=== PATIENT | male | born 1935 | race Caucasian/White ===

== ENCOUNTER 2017-12-31 18:26 | Emergency (ER) | payer MEDICARE, BC ==
[~2017-12-31] VITALS: Ht 170.2 cm; Wt 63.5 kg
[~2017-12-31 18:26] MED LIST: ACETAMINOPHEN325 M1 ORAL; AMBIEN5 MG ORAL; APRESOLINE50 MG ORAL; ASPIRIN81 M3 PO; ATENOLOL100 MG; ATENOLOL100 MG ORAL; ATENOLOL50 MG ORAL; ATIVAN1 MG ORAL; ATIVAN2 MG ORAL; BENICAR HCT 401 EACH ORAL; CARAFATE1 GM/10 M1; CLONIDINE HCL0.1 M1 PO; CLONIDINE0.1 MG ORAL; COLACE100 MG ORAL; ENALAPRIL MALEA10 MG ORAL; ENALAPRIL MALEA20 MG PO; KEFLEX500 MG ORAL; LASIX20 M1 ORAL; LISINOPRIL20 MG ORAL; LORAZEPAM2 MG ORAL; METHADONE HCL10 MG ORAL; METHADONE HCL10 MG PO; NITROSTAT0.4 M2; OXYCODONE-ACET1 EAC5; POTASSIUM CHLO20 ME3 PO; QUETIAPINE FUM200 MG; QUETIAPINE FUMA50 MG ORAL; RANITIDINE HCL150 MG ORAL; SEROQUEL200 MG ORAL; TENORMIN100 MG ORAL; ZANTAC150 MG ORAL
[2017-12-31 19:30] VITALS: BP 125/76
[2017-12-31] MEDS ORDERED: oxyCODONE HCL/Acetaminophen 5/325mg ORAL ONE (20:00)
[2017-12-31] MEDS ORDERED: Ketorolac 30mg Inj IV ONE (20:00)
[2017-12-31 20:32] LABS: BASOPHILS % (AUTO) 0.9 % (0.0-2.0); EOSINOPHILS % (AUTO) 0.9 % (0.0-3.0); HEMATOCRIT 31.5 % (42.0-52.0); HEMOGLOBIN 10.3 G/DL (14.2-18.0); LYMPHOCYTES % (AUTO) 17.3 % (20.0-45.0); MEAN CORPUSCULAR VOLUME 88 FL (80-99); MONOCYTES % (AUTO) 12.8 % (1.0-10.0); NEUTROPHILS % (AUTO) 68.1 % (45.0-75.0); PLATELET COUNT 167 K/UL (150-450); RED BLOOD COUNT 3.57 M/UL (4.70-6.10); RED CELL DISTRIBUTION WIDTH 13.7 % (11.6-14.8); WHITE BLOOD COUNT 6.5 K/UL (4.8-10.8)
[2017-12-31 20:39] LABS: INR 1.1 (0.9-1.1)
[2017-12-31 20:42] LABS: ANION GAP 7 mmol/L (5-15); BLOOD UREA NITROGEN 8 mg/dL (7-18); CALCIUM 8.5 MG/DL (8.5-10.1); CARBON DIOXIDE 30 MMOL/L (21-32); CHLORIDE 85 MMOL/L (98-107); CREATININE 1.2 MG/DL (0.55-1.30); POTASSIUM 3.1 MMOL/L (3.5-5.1); SODIUM 122 MMOL/L (136-145)
[2017-12-31 20:49] LABS: ALANINE AMINOTRANSFERASE 20 U/L (12-78); ALBUMIN 3.3 G/DL (3.4-5.0); ALBUMIN/GLOBULIN RATIO 0.9 (1.0-2.7); ALKALINE PHOSPHATASE 123 U/L (46-116); ASPARTATE AMINO TRANSFERASE 20 U/L (15-37); BILIRUBIN,TOTAL 0.5 MG/DL (0.2-1.0)
--- NOTE | 2017-12-31 21:31 | Emergency Room Report ---
History of Present Illness General Chief Complaint: Lower Back Pain or Injury Source: Patient Present Illness HPI Patient had a ground-level fall onto his left side 2 days ago. He's had persistent pain in his left chest and left flank area. Denies any cough, hematuria, hemoptysis. He states the pain is severe, L side of chest and flank. Rates pain at 8/10, somewhat pleuritic, more positional. The patient is on 95 mg methadone and taking 15 mg Percocets at home. Ambulatory, no incontinence, no cough, chest pain, neck or extremity pain. H/O Bipolar disorder - denies SI or HI. Allergies: Coded Allergies: IODINE (Verified Allergy, Unknown, 05/29/09) Uncoded Allergies: IV dye (Allergy, Unknown, 01/08/15) Patient History Past Medical History: see triage record Past Surgical History: PTCA, appy, other - bunion Social History: Reports: smoking - former Social History Narrative at home Reviewed Nursing Documentation: PMH: Agreed, PSxH: Agreed Nursing Documentation-PMH Past Medical History: No History, Except For Hx Cardiac Problems: Yes Hx Hypertension: Yes Hx Pacemaker: No Hx Asthma: No Hx COPD: No Hx Diabetes: No Hx Cancer: No Hx Gastrointestinal Problems: No Hx Neurological Problems: No Hx Cerebrovascular Accident: No Hx Seizures: No Review of Systems All Other Systems: negative except mentioned in HPI Physical Exam Vital Signs Date Time Temp Pulse Resp B/P (MAP) Pulse Ox O2 Delivery O2 Flow Rate FiO2 12/31/17 18:48 97.9 56 20 125/76 98 Nasal Cannula Sp02 EP Interpretation: reviewed, normal General Appearance: well appearing, no apparent distress, GCS 15 Head: normocephalic Eyes: bilateral eye normal inspection, bilateral eye PERRL ENT: moist mucus membranes Neck: supple Respiratory: lungs clear, normal breath sounds, other - L lower chest posteriorly with TTP, no crepetance Cardiovascular #1: regular rate, rhythm Cardiovascular #2: 2+ radial (R) Gastrointestinal: normal inspection, normal bowel sounds, non tender, no mass, non-distended Genitourinary: CVA tenderness (L) Musculoskeletal: back normal, gait/station normal, normal range of motion Neurologic: alert, oriented x3, motor strength/tone normal, DTRs symmetric, sensory intact, cerebellar normal, normal gait, speech normal Psychiatric: mood/affect normal Skin: normal inspection, warm/dry, other - no abrasions or hematomata Medical Decision Making Diagnostic Impression: Primary Impression: Fall Qualified Codes: W19.XXXA - Unspecified fall, initial encounter Additional Impression: Chest wall contusion Qualified Codes: S20.212A - Contusion of left front wall of thorax, initial encounter ER Course Patient presents post fall 2 days ago with L chest pain. DDx: AMI, contusion, rib fractures, pneumothorax,. flank contusion. Evaluation with Chest abd CT, labs. Treated with anagesics considering will need to get home on own. Labs low sodium, normal CBC. UA not obtained. Improved with treatment. Patient pressuring for opiates. Patient stable for outpatient observation and treatment. Patient left without d/c paperwork and prescriptions (from going to bathroom). Patient stable for outpatient observation and treatment. Laboratory Tests Test 12/31/17 20:08 White Blood Count 6.5 K/UL (4.8-10.8) Red Blood Count 3.57 M/UL (4.70-6.10) L Hemoglobin 10.3 G/DL (14.2-18.0) L Hematocrit 31.5 % (42.0-52.0) L Mean Corpuscular Volume 88 FL (80-99) Mean Corpuscular Hemoglobin 28.9 PG (27.0-31.0) Mean Corpuscular Hemoglobin Concent 32.7 G/DL (32.0-36.0) Red Cell Distribution Width 13.7 % (11.6-14.8) Platelet Count 167 K/UL (150-450) Mean Platelet Volume 8.1 FL (6.5-10.1) Neutrophils (%) (Auto) 68.1 % (45.0-75.0) Lymphocytes (%) (Auto) 17.3 % (20.0-45.0) L Monocytes (%) (Auto) 12.8 % (1.0-10.0) H Eosinophils (%) (Auto) 0.9 % (0.0-3.0) Basophils (%) (Auto) 0.9 % (0.0-2.0) Prothrombin Time 11.1 SEC (9.30-11.50) Prothrombin Time INR 1.1 (0.9-1.1) PTT 32 SEC (23-33) Sodium Level 122 MMOL/L (136-145) L Potassium Level 3.1 MMOL/L (3.5-5.1) L Chloride Level 85 MMOL/L (98-107) L Carbon Dioxide Level 30 MMOL/L (21-32) Anion Gap 7 mmol/L (5-15) Blood Urea Nitrogen 8 mg/dL (7-18) Creatinine 1.2 MG/DL (0.55-1.30) Estimate Glomerular Filtration Rate mL/min (>60) Glucose Level 83 MG/DL (74-106) Calcium Level 8.5 MG/DL (8.5-10.1) Total Bilirubin 0.5 MG/DL (0.2-1.0) Aspartate Amino Transferase (AST) 20 U/L (15-37) Alanine Aminotransferase (ALT) 20 U/L (12-78) Alkaline Phosphatase 123 U/L (46-116) H Troponin I 0.006 ng/mL (0.000-0.056) Total Protein 6.9 G/DL (6.4-8.2) Albumin 3.3 G/DL (3.4-5.0) L Globulin 3.6 g/dL Albumin/Globulin Ratio 0.9 (1.0-2.7) L EKG Diagnostic Results Rate: bradycardiac Rhythm: other - a fib Rhythm Strip Diag. Results EP Interpretation: yes Rhythm: no PVC's, no ectopy, other - a fib CT/MRI/US Diagnostic Results CT/MRI/US Diagnostic Results : Imaging Test Ordered: chest abd Impression Compression T5, T6 - uncertain age Old fx R shoulder, chest wall and spine Small pleural effusions Pacer, inc cor Hiatal hernia Old fx pubic ramus Last Vital Signs Date Time Temp Pulse Resp B/P (MAP) Pulse Ox O2 Delivery O2 Flow Rate FiO2 12/31/17 22:09 125/67 12/31/17 20:48 97.9 12/31/17 19:30 20 98 Nasal Cannula 12/31/17 18:48 56 Status: improved Disposition: HOME, SELF-CARE Condition: Improved Scripts Ibuprofen* (MOTRIN*) 600 Mg Tablet 600 MG ORAL Q6H Y for For Pain, #20 TAB Prov: Antonio Izaguirre M.D. 12/31/17 Referrals: VADIM CERVANTES (PCP) Antonio Izaguirre M.D. Dec 31, 2017 21:31
[2017-12-31] MEDS ORDERED: IBUPROFEN600 MG ORAL (21:33)
[2017-12-31 22:09] VITALS: BP 125/67
--- NOTE | 2018-01-01 13:16 | Diagnostic Imaging Report ---
Indication: Pain status post trauma Technique: CT of the chest, abdomen and pelvis utilizing automated exposure control without intravenous or oral contrast. CT dose: Total DLP 871 mGycm; CTDI vol 13.3 mGy Comparison: CT abdomen 10/09/2010 Findings: There compression deformities of uncertain age involving the T5, T6 and T7 vertebral bodies. There is S-shaped scoliosis and multilevel degenerative change of the thoracolumbar spine. There is transitional lumbosacral anatomy with 6 nonrib-bearing lumbar-type vertebral bodies. Likely chronic compression fractures involving the L2 and L4 vertebral bodies. There is partial fusion between L1 and L2. There is grade 1 anterolisthesis of L5 on L6, which is likely degenerative in etiology. There are remote fracture deformities of the right clavicle and shoulder. Remote fracture deformity of the right inferior pubic ramus. There are trace bilateral pleural effusions, left greater than right. There are bibasilar atelectatic changes scattered calcified granulomas. There is linear atelectasis/scarring in the lingula. There multiple bilateral pulmonary nodules, all measuring less than 6 mm. For example there is a 3 mm nodule in the left lower lobe (series 5 image #60. 3 mm nodule is noted in the middle lobe (series 5 image #74) and 2 mm nodule in the right lower lobe (series 5 image #76). Heart is borderline enlarged. There are extensive coronary arterial calcifications. Left-sided pacemaker in place. Moderate-sized hiatal hernia. Noncontrast evaluation of the liver, gallbladder, spleen, adrenal glands and pancreas is grossly unremarkable. Multiple low-attenuation lesions in the bilateral kidneys possibly cysts. No evidence of obstructive uropathy. Copious stool noted in the colon. No evidence to suggest bowel obstruction. Appendix not definitively identified. No focal inflammatory stranding in the right lower quadrant to suggest appendicitis. No ascites or free intraperitoneal air. Abdominal aorta is severely calcified but normal in caliber. IMPRESSION: Age-indeterminate compression fractures of T5, T6 and T7. Rib fracture deformities of the right shoulder, right clavicle and right inferior pubic ramus. Chronic appearing lumbar compression fractures. Scoliosis and multilevel degenerative change of the thoracolumbar spine. Evidence of transitional lumbosacral anatomy. No definite evidence of solid organ injury however evaluation limited without IV contrast. No evidence to suggest hemoperitoneum. No free intraperitoneal air. Copious stool noted within the colon. Question constipation. Moderate-sized hiatal hernia. Small bilateral pleural effusions and bibasilar atelectasis/consolidation. Cardiomegaly. Pacemaker in place. Multiple bilateral pulmonary nodules less than 6 mm. Per Fleischner Society criteria recommendations, no routine follow-up recommended if patient is considered low risk. Optional CT scan in 12 months can be considered if patient is considered high risk. Additional findings as above. The CT scanner at [facility] is accredited by the [employer] and the scans are performed using protocols designed to limit radiation exposure to as low as reasonably achievable to attain images of sufficient resolution adequate for diagnostic evaluation.
--- NOTE | 2018-01-04 17:09 | Cardiology Report ---
APPROVED REPORT EKG Measurement Heart [id number] Atrial pacing with premature atrial complexes Prolonged QT Abnormal ECG
== END 2017-12-31 22:11 | disposition home or self-care (01) ==
LOC: EMR 20:15
DX: S20.212A Contusion of left front wall of thorax, initial encounter (principal); W19.XXXA Unspecified fall, initial encounter; Y92.9 Unspecified place or not applicable; Z91.041 Radiographic dye allergy status; I10 Essential (primary) hypertension; Z87.891 Personal history of nicotine dependence; M48.54XA Collapsed vertebra, not elsewhere classified, thoracic region, initial encounter for fracture; K44.9 Diaphragmatic hernia without obstruction or gangrene; M41.85 Other forms of scoliosis, thoracolumbar region; Z95.0 Presence of cardiac pacemaker; I51.7 Cardiomegaly
CPT/HCPCS: 36415; 71250; 74150; 80053; 84484; 85025; 85610; 85730; 93005; 99284; J1885

== ENCOUNTER 2019-04-04 12:03 | Inpatient (IN) | payer MEDICARE, BC ==
[~2019-04-04] VITALS: Ht 170.2 cm; Wt 62.6 kg
[~2019-04-04 12:03] MED LIST changes: +IBUPROFEN600 MG ORAL
[2019-04-04] MEDS ORDERED: Morphine Sulfate 4mg/ml Inj (IV USE ONLY) IVP ONE ×2 (12:15→13:00)
--- NOTE | 2019-04-04 13:00 | NUR ---
ED Nurse Note:pt. was biba from the [facility] with lower back pain, VSS, given 2 doses of morphine and blood sent to labs
[2019-04-04 13:04] LABS: BASOPHILS % (AUTO) 1.8 % (0.0-2.0); EOSINOPHILS % (AUTO) 2.5 % (0.0-3.0); HEMOGLOBIN 11.9 G/DL (14.2-18.0); LYMPHOCYTES % (AUTO) 23.7 % (20.0-45.0); MEAN CORPUSCULAR VOLUME 94 FL (80-99); MONOCYTES % (AUTO) 10.9 % (1.0-10.0); NEUTROPHILS % (AUTO) 61.1 % (45.0-75.0); PLATELET COUNT 163 K/UL (150-450); RED BLOOD COUNT 3.83 M/UL (4.70-6.10); RED CELL DISTRIBUTION WIDTH 13.1 % (11.6-14.8); WHITE BLOOD COUNT 6.9 K/UL (4.8-10.8)
[2019-04-04 13:05] LABS: ANION GAP 10 mmol/L (5-15); BLOOD UREA NITROGEN 15 mg/dL (7-18); CALCIUM 8.5 MG/DL (8.5-10.1); CARBON DIOXIDE 23 MMOL/L (21-32); CHLORIDE 113 MMOL/L (98-107); CREATININE 1.4 MG/DL (0.55-1.30); POTASSIUM 3.8 MMOL/L (3.5-5.1); SODIUM 146 MMOL/L (136-145)
[2019-04-04 13:09] LABS: ALANINE AMINOTRANSFERASE 22 U/L (12-78); ALBUMIN 3.3 G/DL (3.4-5.0); ALBUMIN/GLOBULIN RATIO 0.9 (1.0-2.7); ALKALINE PHOSPHATASE 97 U/L (46-116); ASPARTATE AMINO TRANSFERASE 20 U/L (15-37); BILIRUBIN,TOTAL 0.2 MG/DL (0.2-1.0)
[2019-04-04] MEDS ORDERED: Ketorolac 30mg Inj IV ONE (13:15)
[2019-04-04 13:29] VITALS: BP 114/76
[2019-04-04] MEDS ORDERED: LORazepam Inj 2mg/ml 1ml ONE (13:41)
[2019-04-04] MEDS ORDERED: LORazepam Inj 2mg/ml 1ml IV ONE (13:45)
[2019-04-04] MEDS ORDERED: MULTIVITAMINS1 EAC8 ORAL (14:07)
[2019-04-04] MEDS ORDERED: FLOMAX0.4 MG ORAL ×2 (14:07→18:58)
[2019-04-04] MEDS ORDERED: NORCO 5-325 TA1 EACH ORAL (14:07)
[2019-04-04] MEDS ORDERED: ASCORBIC ACID500 MG ORAL (14:07)
[2019-04-04] MEDS ORDERED: NUTRISOURCE FI205 GM PO (14:07)
[2019-04-04] MEDS ORDERED: NORCO 10-325 T1 EACH ORAL (14:07)
[2019-04-04] MEDS ORDERED: HUMALOG100 UNIT/4 SUBQ (14:07)
[2019-04-04] MEDS ORDERED: LISINOPRIL20 MG ORAL (14:07)
[2019-04-04] MEDS ORDERED: MULTIVITAMINS1 EAC2 ORAL (14:07)
[2019-04-04] MEDS ORDERED: NORVASC5 MG ORAL (14:07)
--- NOTE | 2019-04-04 15:07 | Emergency Room Report ---
History of Present Illness General Chief Complaint: Pain Present Illness HPI Patient is an 83-year-old male presented for increased low back pain and left- sided abdominal pain. Patient gradual onset of symptoms. He prior history of prostate cancer. He was noted to be narcotic dependent. Patient had not been vomiting or having any fever. He reports having some pain to the left groin area. He denies any hematuria. He has been able to ambulate. Patient denies any vomiting or diarrhea.He reportedly has been having bowel movements. Allergies: Coded Allergies: IODINE (Verified Allergy, Unknown, 05/29/09) Uncoded Allergies: IV dye (Allergy, Unknown, 01/08/15) Patient History Past Medical History: see triage record Reviewed Nursing Documentation: PMH: Agreed; PSxH: Agreed Nursing Documentation-PMH Hx Cardiac Problems: Yes - Pacemaker Hx Hypertension: Yes Hx Pacemaker: No Hx Asthma: No Hx COPD: No Hx Diabetes: No Hx Cancer: Yes - Prostate Hx Gastrointestinal Problems: No History Of Psychiatric Problem: Yes - Bipolar Hx Neurological Problems: No Hx Cerebrovascular Accident: No Hx Seizures: No Review of Systems All Other Systems: negative except mentioned in HPI Physical Exam Vital Signs Date Time Temp Pulse Resp B/P (MAP) Pulse Ox O2 Delivery O2 Flow Rate FiO2 04/04/19 11:55 98.1 70 18 97 Room Air 04/04/19 13:29 114/76 Sp02 EP Interpretation: reviewed, normal General Appearance: normal inspection, well appearing, no apparent distress, alert, Chronically Ill Head: atraumatic ENT: normal ENT inspection, hearing grossly normal, normal voice Neck: normal inspection, full range of motion, supple, no bony tend Respiratory: normal inspection, lungs clear, normal breath sounds, no respiratory distress, no retraction, no wheezing Cardiovascular #1: regular rate, rhythm, no edema Gastrointestinal: normal inspection, normal bowel sounds, non tender, soft, no guarding, no hernia Genitourinary: no CVA tenderness Musculoskeletal: normal inspection, normal range of motion, decreased range of motion Neurologic: normal inspection, alert, responsive, speech normal Psychiatric: normal inspection, judgement/insight normal, mood/affect normal Skin: normal inspection, normal color, no rash Medical Decision Making Diagnostic Impression: Primary Impression: Intractable back pain Additional Impression: Prostate CA ER Course Patient presented for back pain. Differential diagnosis included but was not limited to herniated disc, cauda equina syndrome, abdominal aortic aneurysm, perforated ulcer, spinal epidural abscess, spinal stenosis, lumbar fracture, metastatic lesion. because of complexity of patient's case laboratory testing and imaging studies were ordered. Was noted to have unremarkable laboratory testing. Patient was noted to have CT imaging which showed multiple lytic lesions as well as some chronic compression fractures. Patient was discussed with Dr. Romano for inpatient management due to primary care physician patient be admitted for intractable pain. Labs Test 04/04/19 12:40 White Blood Count 6.9 K/UL (4.8-10.8) Red Blood Count 3.83 M/UL (4.70-6.10) Hemoglobin 11.9 G/DL (14.2-18.0) Hematocrit 36.0 % (42.0-52.0) Mean Corpuscular Volume 94 FL (80-99) Mean Corpuscular Hemoglobin 31.0 PG (27.0-31.0) Mean Corpuscular Hemoglobin Concent 32.9 G/DL (32.0-36.0) Red Cell Distribution Width 13.1 % (11.6-14.8) Platelet Count 163 K/UL (150-450) Mean Platelet Volume 7.3 FL (6.5-10.1) Neutrophils (%) (Auto) 61.1 % (45.0-75.0) Lymphocytes (%) (Auto) 23.7 % (20.0-45.0) Monocytes (%) (Auto) 10.9 % (1.0-10.0) Eosinophils (%) (Auto) 2.5 % (0.0-3.0) Basophils (%) (Auto) 1.8 % (0.0-2.0) Sodium Level 146 MMOL/L (136-145) Potassium Level 3.8 MMOL/L (3.5-5.1) Chloride Level 113 MMOL/L (98-107) Carbon Dioxide Level 23 MMOL/L (21-32) Anion Gap 10 mmol/L (5-15) Blood Urea Nitrogen 15 mg/dL (7-18) Creatinine 1.4 MG/DL (0.55-1.30) Estimat Glomerular Filtration Rate mL/min (>60) Glucose Level 96 MG/DL (74-106) Calcium Level 8.5 MG/DL (8.5-10.1) Total Bilirubin 0.2 MG/DL (0.2-1.0) Aspartate Amino Transf (AST/SGOT) 20 U/L (15-37) Alanine Aminotransferase (ALT/SGPT) 22 U/L (12-78) Alkaline Phosphatase 97 U/L (46-116) Total Protein 6.8 G/DL (6.4-8.2) Albumin 3.3 G/DL (3.4-5.0) Globulin 3.5 g/dL Albumin/Globulin Ratio 0.9 (1.0-2.7) Lipase 232 U/L (73-393) Last Vital Signs Date Time Temp Pulse Resp B/P (MAP) Pulse Ox O2 Delivery O2 Flow Rate FiO2 04/04/19 13:29 70 17 114/76 98 04/04/19 11:55 98.1 Room Air Status: unchanged Disposition: ADMITTED INPATIENT Condition: Serious Referrals: Kellee Ansari MD (PCP) Valentino Khan MD April 04, 2019 15:07
[2019-04-04 15:27] VITALS: BP 119/78
--- NOTE | 2019-04-04 16:08 | NUR ---
ED Nurse Note:called report to [facility]- given to Christin pt. was taken up condition stable
--- NOTE | 2019-04-04 16:26 | NUR ---
NURSE NOTES: paged Dr Ansari for admission orders. awaiting for response. Patient is A/A/Ox4, ambulatory. No acute resp/cardio distress. cooperative. compliant to Q&A. personal belongings reviewed and noted. However, patient refused to place his bills in the safe $258. skin is intact. arrived to the unit via wheelchair. Bed is in the lowest position. siderails are up x3. call light is within reach. Admission profile done. will cont to monitor.
[2019-04-04 16:31] VITALS: BP 130/69
[2019-04-04] MEDS ORDERED: Docusate 100mg cap ORAL SCH (18:00)
[2019-04-04] MEDS ORDERED: DiphenhydrAMINE 50mg/ml Inj IVP PRN (18:00)
[2019-04-04] MEDS ORDERED: QUEtiapine 200mg tab ORAL SCH ×2 (18:00→21:00)
[2019-04-04] MEDS ORDERED: ALPRAZolam 0.5mg tab ORAL PRN (18:00)
[2019-04-04] MEDS ORDERED: HydrALAZINE 50mg tab ORAL SCH (18:00)
[2019-04-04] MEDS ORDERED: Cephalexin 500mg cap ORAL SCH (18:00)
[2019-04-04] MEDS ORDERED: LORazepam 1mg tab ORAL PRN (18:00)
[2019-04-04] MEDS ORDERED: Nitroglycerin Subl 0.4mg tab SL PRN (18:15)
[2019-04-04] MEDS ORDERED: LORAZEPAM1 MG ORAL (18:54)
[2019-04-04] MEDS ORDERED: FERROUS SULFAT325 MG ORAL (18:54)
[2019-04-04] MEDS ORDERED: CRESTOR10 M2 ORAL (18:54)
[2019-04-04] MEDS ORDERED: FAMOTIDINE20 MG ORAL (18:54)
[2019-04-04] MEDS ORDERED: AMLODIPINE BESY10 MG ORAL (18:58)
[2019-04-04] MEDS ORDERED: ISOSORBIDE MONO30 M1 PO (18:58)
[2019-04-04] MEDS ORDERED: FUROSEMIDE20 M1 ORAL (18:58)
[2019-04-04] MEDS ORDERED: DOCUSATE SODIU250 MG ORAL (18:58)
[2019-04-04] MEDS ORDERED: PANTOPRAZOLE SO40 MG ORAL (18:58)
[2019-04-04] MEDS ORDERED: MONTELUKAST SOD10 MG ORAL (19:00)
[2019-04-04] MEDS ORDERED: ACETAMINOPHEN500 M3 ORAL (19:00)
[2019-04-04] MEDS ORDERED: BISACODYL5 MG ORAL (19:00)
[2019-04-04] MEDS ORDERED: Acetaminophen 500mg (ES) tab ORAL PRN (19:15)
--- NOTE | 2019-04-04 19:26 | NUR ---
HAND-OFF: Report given to Odette.
[2019-04-04 19:55] VITALS: BP 143/63
[2019-04-04] MEDS: Tamsulosin 0.4mg cap ORAL SCH (20:29)
[2019-04-04] MEDS: LORazepam 1mg tab ORAL SCH (20:29)
[2019-04-04] MEDS: Bisacodyl EC 5mg tab ORAL SCH (20:30)
[2019-04-04] MEDS: Heparin 5000 units/ml inj SUBQ SCH (20:31)
[2019-04-04] MEDS ORDERED: Zolpidem 5mg tab ORAL PRN (21:00)
--- NOTE | 2019-04-04 22:48 | NUR ---
Nurse's notes: Received patient awake, alert, oriented but pleasantly forgetful; c/o of lower back pain of 5/10 when in bed and 7/10 when ambulating; asking for Percocet and Methadone, however, none ordered; reviewed orders including MAR with patient; Juan is agreeable and understands plan of care; VS taken; WNL, afebrile; able to ambulate to the bathroom with a steady gait; reminded patient to call for assistance when ambulating. will continue to monitor.
[2019-04-04 23:38] VITALS: BP 137/66
[2019-04-05 03:29] VITALS: BP 145/71
--- NOTE | 2019-04-05 06:43 | NUR ---
nurse's notes: No incidents of falls, injuries or trauma reported as of this time. pain managed well with ordered iv dilaudid with good results. noted with a steady gait when ambulating to the bathroom; no bm this shift. vss; afebrile. will continue to monitor.
--- NOTE | 2019-04-05 07:55 | NUR ---
NURSE NOTES: Received report from Odette ANGUIANO. Patient is awake alert and oriented x4, no acute distress noted, sitting up in bed eating breakfast, reporting back pain is decreasing following dilaudid, but patient reporting anxiety, will administer scheduled Ativan as ordered. IV intact and asymptomatic. Fall prevention education provided and patient reports understanding. Side rails upx3, bed low and locked, call light in reach. Patient updated on plan of care. Will continue to monitor.
[2019-04-05 08:00] VITALS: BP 134/63
--- NOTE | 2019-04-05 08:44 | NUR ---
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 HX OF PROSTATE CANCER VS: BP 114/66, P 70, T 98.0, RR 18, SpO2 97 RBC 3.83, H&H 11.9/36.0,Na 146, CR 1.4 IS:MORPHINE SULFATE 4mg IVP TORADOL 15mg IV LORAZEPAM 0.5mg IV SEROQUEL 200mg APRESOLINE 50mg ADMITTED TO MED/SURG DCP: RETURN TO [facility]
[2019-04-05] MEDS: LORazepam 1mg tab ORAL SCH ×2 (08:45→21:01)
[2019-04-05] MEDS: Docusate 250mg cap ORAL SCH ×2 (08:45→18:02)
[2019-04-05] MEDS: Imdur 30mg tab ORAL SCH (08:45)
[2019-04-05] MEDS: Montelukast 10mg tablet ORAL SCH (08:46)
[2019-04-05] MEDS: Bisacodyl EC 5mg tab ORAL SCH ×2 (08:46→21:01)
[2019-04-05] MEDS: Heparin 5000 units/ml inj SUBQ SCH ×2 (08:48→21:04)
[2019-04-05] MEDS ORDERED: Aspirin Baby 81mg ORAL SCH (09:00)
[2019-04-05] MEDS ORDERED: Lisinopril 20mg tab ORAL SCH (09:00)
--- NOTE | 2019-04-05 11:06 | Diagnostic Imaging Report ---
Indication: Back pain. No recent trauma. Technique: Continuous helical transaxial imaging of the lumbar spine was obtained from the lung bases to the pubic symphysis. No IV contrast was administered. Coronal 2-D reformats were also obtained. Study obtained in a Siemens sensation [address] Total Dose length Product (DLP): 371.[address] Dose Index Volume (CTDIvol): 12.75 mGy Comparison: None Findings: The bones are severely osteopenic. There are multiple compression fracture deformities involving the vertebral bodies present at virtually every level. There are erosive changes about the endplates at L1-2 which could be from a discitis/spondylitis. Correlate clinically. There is a moderate to severe degenerative disc disease with vacuum phenomena and narrowing. Interbody fusion at multiple levels including L3-4 T11-12 and T12-L1. Hypertrophic spurs at multiple levels. Multilevel foraminal stenosis appreciated. There is a right convex scoliosis. There is no acute fracture identified. There is no soft tissue swelling identified. The aorta is moderately tortuous and calcified. IMPRESSION: Erosive changes involving the vertebral endplates about the L1-2 disc. Discitis/osteomyelitis not excluded. Correlate clinically. Severe degenerative changes of the lumbar spine as described above. Right convex scoliosis. Multilevel disc disease and facet arthropathy. Multilevel vertebral compression fracture deformities presumably on the basis of osteoporosis as described above. Atherosclerotic vascular disease. [facility] has communicated the preliminary results to the Emergency Department. Their findings are largely concordant with this report. The CT scanner at [facility] is accredited by the [employer] and the scans are performed using dose optimization techniques as appropriate to a performed exam including Automatic Exposure control.
[2019-04-05 12:00] VITALS: BP 153/76
[2019-04-05] MEDS ORDERED: Tubing IV Secondary IV ONE (14:24)
[2019-04-05 16:00] VITALS: BP 143/79
--- NOTE | 2019-04-05 19:46 | NUR ---
HAND-OFF: Report given to Clemente RN. Patient is in stable condition.
[2019-04-05 20:00] VITALS: BP 135/64
--- NOTE | 2019-04-05 20:15 | NUR ---
NURSE NOTES: Pt is in bed, awake and verbal. No acute distress noted. Pt complains of back pain, pain medication will be given as ordered PRN. IV site on left forearm asymptomatic and patent. Pt ambulates. PT was instructed to call for assistance before getting out of bed. Bed low in position,side rails up and call light within reach.
[2019-04-05] MEDS: Tamsulosin 0.4mg cap ORAL SCH (21:01)
[2019-04-06] VITALS: BP 129/98
--- NOTE | 2019-04-06 02:30 | History and Physical Report ---
DATE OF ADMISSION: 04/04/2019 CHIEF COMPLAINT: Severe low back pain. HISTORY OF PRESENT ILLNESS: This is an 83-year-old male, who is well known to me for years from previous and current care. The patient is narcotic-dependent individual. He gets his narcotics from different sources. 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 However, I do not provide the patient with narcotics due to his high risk for narcotic abuse. The patient was referred to the hospital due to severe low back pain. PAST MEDICAL HISTORY: 1. Ischemic heart disease. 2. Hypertensive cardiovascular disease. 3. History of narcotic abuse. 4. Status post pacemaker. 5. Chronic obstructive pulmonary disease. MEDICATIONS: Tylenol p.r.n., amlodipine, Tenormin, Dulcolax, sodium docusate, famotidine, oral iron, Lasix, isosorbide, lorazepam, montelukast, Protonix, Crestor, and tamsulosin. ALLERGIES: Iodine. FAMILY HISTORY: Unremarkable. SOCIAL HISTORY: He lives in a board and care. HABITS: He is a past heavy cigarette smoker and also has history of a narcotic use. REVIEW OF SYSTEMS: HEENT: Hearing and eyesight are normal. ENDOCRINE: No history of diabetes, thyroid, or adrenal problems. RESPIRATORY: He denies shortness of breath, cough, or hemoptysis. CARDIAC: No chest pain or palpitations. GASTROINTESTINAL: No history of hematochezia, melena, hematemesis, diarrhea, or constipation. MUSCULOSKELETAL: Significant for different types of aches including low back pain. PHYSICAL EXAMINATION: GENERAL: This is an elderly male, who is in no acute distress. VITAL SIGNS: Blood pressure 153/76, pulse 72 and regular, respirations 20, and temperature 98. HEENT: The head is normocephalic and atraumatic. Pupils are equal, round, and reactive to light and accommodation consensually. NECK: Supple. Trachea midline. There was no lymphadenopathy or thyromegaly. LUNGS: Clear to auscultation and percussion. HEART: Regular rate and rhythm without rubs, murmurs, or gallops. ABDOMEN: Soft and nontender. Bowel sounds were active. EXTREMITIES: No clubbing, cyanosis, or edema. NEUROLOGICAL: He is alert and oriented x4. Cranial nerves II through XII intact. LABORATORY AND ANCILLARY DATA: A CT scan of the spine shows erosive changes of the vertebral endplates L1 and L2. There is also evidence of diskitis or osteomyelitis, not excluded, severe degenerative changes of the lumbar spine, multilevel vertebral compression fracture deformities presumably on the basis of osteoporosis, and there is evidence of atherosclerotic vascular disease. CBC within normal limits. BMP shows creatinine 1.4, otherwise within normal limits. ASSESSMENT: 1. Extensive degenerative lumbar diskitis. 2. Ischemic heart disease. 3. Hypertensive cardiovascular disease. 4. History of narcotic abuse. 5. Status post pacemaker. 6. Chronic obstructive pulmonary disease. PLAN: 1. Continue home medications. 2. Pain control. Kellee Ansari M.D. DR: MATT JOB#: [id number] CC: BRIANDA
--- NOTE | 2019-04-06 03:00 | NUR ---
NURSE NOTES: Pt is in bed, asleep. no acute distress noted.
[2019-04-06 04:00] VITALS: BP 143/70
--- NOTE | 2019-04-06 07:05 | NUR ---
HAND-OFF: Report given to ANNMARIE Lay.
--- NOTE | 2019-04-06 07:38 | NUR ---
NURSE NOTES: Patient alert x4, on room air, no sign of distress and shortness of breath; no sign of chest pain; IV Left for-arm flushes well; bed at low position, side rails up x2, breaks engaged; call light within reach; will keep monitoring.
[2019-04-06 08:00] VITALS: BP 125/56
[2019-04-06] MEDS: Docusate 250mg cap ORAL SCH ×2 (08:17→17:55)
[2019-04-06] MEDS: Imdur 30mg tab ORAL SCH (08:17)
[2019-04-06] MEDS: Bisacodyl EC 5mg tab ORAL SCH ×2 (08:18→20:38)
[2019-04-06] MEDS: LORazepam 1mg tab ORAL SCH ×2 (08:18→20:38)
[2019-04-06] MEDS: Montelukast 10mg tablet ORAL SCH (08:19)
[2019-04-06] MEDS: Heparin 5000 units/ml inj SUBQ SCH ×2 (08:21→20:43)
--- NOTE | 2019-04-06 08:59 | Consultation ---
DATE OF CONSULTATION: 04/05/2019 NOTE: POOR AUDIO ORTHOPEDIC CONSULTATION CONSULTING PHYSICIAN: Anand Washington M.D. REQUESTING PHYSICIAN: Kellee Ansari M.D. CHIEF COMPLAINT: Low back pain. HISTORY OF PRESENT ILLNESS: The patient is a pleasant 83-year-old gentleman with a history of low back pain. He was admitted for worsening pain. The patient does not report any acute recent injury. He was brought to [facility]. He had a CT scan of the lumbar spine. Orthopedic consultation was obtained for further care and recommendation. PAST MEDICAL HISTORY: Reviewed per intake chart. SURGICAL HISTORY: Reviewed per intake chart. MEDICATIONS: Reviewed per intake chart. PHYSICAL EXAMINATION: GENERAL: The patient is pretty cachectic gentleman. He is resting in the exam room bed. VITAL SIGNS: Afebrile. Stable vital signs. BACK: Low back examination shows deformity. muscles. Sensation is intact to light touch. bowel or bladder incontinence. LABORATORY AND DIAGNOSTIC DATA: CT scan shows severe osteoporosis with multilevel compression fractures with interbody fusion at L3-L4, T11-T12 and T12-L1. ASSESSMENT: 1. 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 2. Multiple vertebral body compression fractures. 3. Severe osteoporosis. DISCUSSION: At this point, in terms of his back, he has failed back syndrome with pain. He is not a good surgical candidate and he has severe osteoporosis and already had multiple compression fractures. At this point, I recommend is consideration to get him off the PT/OT. If he still has issues, then an MRI for either epidural injection or possibly some type of spinal cord stimulator the next treatment options. Anand Washingotn M.D. DR: Madai JOB#: [id number] CC: Kellee Ansari M.D.; Fax#: [phone]
[2019-04-06 12:00] VITALS: BP 125/65
[2019-04-06 16:00] VITALS: BP 120/70
--- NOTE | 2019-04-06 17:15 | General Progress Note ---
Assessment/Plan Assessment/Plan: Severe Lumbar Spondylosis. Ortho noted. Trying to get epidural injection. Subjective Allergies: Coded Allergies: IODINE (Verified Allergy, Unknown, 05/29/09) Uncoded Allergies: IV dye (Allergy, Unknown, 01/08/15) Subjective Still c/o severe LBP. Objective Last 24 Hour Vital Signs Date Time Temp Pulse Resp B/P (MAP) Pulse Ox O2 Delivery O2 Flow Rate FiO2 04/06/19 16:00 99.4 74 18 120/70 (87) 100 04/06/19 15:10 98.3 04/06/19 12:00 98.3 69 18 125/65 (85) 100 04/06/19 09:00 Room Air 04/06/19 08:18 82 125/56 04/06/19 08:17 125/56 04/06/19 08:00 99.3 82 20 125/56 (79) 96 04/06/19 04:00 97.9 68 18 143/70 (94) 98 04/06/19 00:00 98.8 93 18 129/98 (108) 95 04/05/19 21:00 Room Air 04/05/19 20:00 98.6 59 18 135/64 (87) 97 Intake and Output 04/05/19 04/06/19 19:00 07:00 Intake Total 690 ml 720 ml Output Total 500 ml Balance 690 ml 220 ml Intake Oral 690 ml 720 ml Output Urine Total 500 ml # Voids 3 6 # Bowel Movements 2 Height (Feet): 5 Height (Inches): 7.00 Weight (Pounds): 145 Objective CV Rr Lungs CTA Abd SNT BS + E No CCe Kellee Ansari MD April 06, 2019 17:15
--- NOTE | 2019-04-06 19:36 | NUR ---
HAND-OFF: Report given to Rohini/ANNMARIE Altman.
--- NOTE | 2019-04-06 19:40 | NUR ---
NURSE NOTES: RECEIVED PT FROM ANNMARIE BRYANT. PT IS AMBULATING THE HALLWAY, AAO X4, ON ROOM AIR W/ UNLABORED BREATHING. PT DENIES PAIN BOGDAN, NO ACUTE DISTRESS NOTED. PT HAS A PATENT IV ON L FA 22G. WILL CONTINUE TO MONITOR.
[2019-04-06 20:00] VITALS: BP 124/62
[2019-04-06] MEDS: Tamsulosin 0.4mg cap ORAL SCH (20:38)
[2019-04-07] VITALS: BP 118/56
[2019-04-07 04:00] VITALS: BP 145/76
--- NOTE | 2019-04-07 07:10 | NUR ---
HAND-OFF: Report given to ANNMARIE Grier.
--- NOTE | 2019-04-07 07:48 | NUR ---
NURSE NOTES: Patient alert x4, on room air, no sign of distress and shortness of breath; no sign of chest pain. IV Left for-arm flushes well. Side rails up x2, bed at lowest position, breaks engaged. Call light within reach. will keep monitoring.
[2019-04-07 08:00] VITALS: BP 122/54
[2019-04-07] MEDS: LORazepam 1mg tab ORAL SCH ×2 (08:33→20:10)
[2019-04-07] MEDS: Bisacodyl EC 5mg tab ORAL SCH ×2 (08:33→20:10)
[2019-04-07] MEDS: Imdur 30mg tab ORAL SCH (08:34)
[2019-04-07] MEDS: Docusate 250mg cap ORAL SCH ×2 (08:34→17:41)
[2019-04-07] MEDS: Montelukast 10mg tablet ORAL SCH (08:34)
[2019-04-07] MEDS: Heparin 5000 units/ml inj SUBQ SCH ×2 (08:36→20:11)
[2019-04-07 12:00] VITALS: BP 119/60
[2019-04-07 16:00] VITALS: BP 136/66
--- NOTE | 2019-04-07 19:16 | NUR ---
HAND-OFF: Report given to ANNMARIE Burt.
--- NOTE | 2019-04-07 19:30 | NUR ---
NURSE NOTES: Received patient in no apparent distress. A&OX4. IV site patent and intact. Bed in lowest position. Call light within reach. Will continue to monitor.
[2019-04-07 20:00] VITALS: BP 157/77
--- NOTE | 2019-04-07 20:00 | NUR ---
NURSE NOTES: Patient refused turn on the bed alarm. Explained risk and benefit but still refused. Patient says "I'm ok, alarm sound it bother me".
[2019-04-07] MEDS: Tamsulosin 0.4mg cap ORAL SCH (20:10)
[2019-04-08] VITALS: BP 141/62
[2019-04-08 04:00] VITALS: BP 138/61
--- NOTE | 2019-04-08 07:20 | NUR ---
HAND-OFF: Report given to Sylvia ANGUIANO.
--- NOTE | 2019-04-08 07:21 | NUR ---
NURSE NOTES: received report from Estefany Burt RN. patient in bed. A&Ox4, verbally responsive. no respiratory distress noted. c/o pain on low back. skin intact. ambulatory. IV on LFA 22. intact. bed in the lowest position. call light within reach. will continue to monitor
[2019-04-08 08:00] VITALS: BP 131/60
[2019-04-08] MEDS: Docusate 250mg cap ORAL SCH (08:27)
[2019-04-08] MEDS: Bisacodyl EC 5mg tab ORAL SCH (08:27)
[2019-04-08] MEDS: LORazepam 1mg tab ORAL SCH (08:27)
[2019-04-08] MEDS: Imdur 30mg tab ORAL SCH (08:28)
[2019-04-08] MEDS: Heparin 5000 units/ml inj SUBQ SCH (08:31)
[2019-04-08] MEDS: Montelukast 10mg tablet ORAL SCH (08:32)
[2019-04-08 12:00] VITALS: BP 120/68
--- NOTE | 2019-04-08 14:08 | General Progress Note ---
Assessment/Plan Assessment/Plan: Severe Lumbar Spondylosis. Ortho noted. Trying to get epidural injection. Cannot get anyone to do epidural. DC home Subjective Allergies: Coded Allergies: IODINE (Verified Allergy, Unknown, 05/29/09) Uncoded Allergies: IV dye (Allergy, Unknown, 01/08/15) Subjective Still c/o severe LBP. Objective Last 24 Hour Vital Signs Date Time Temp Pulse Resp B/P (MAP) Pulse Ox O2 Delivery O2 Flow Rate FiO2 04/08/19 12:00 98.1 67 20 120/68 (85) 98 04/08/19 09:00 Room Air 04/08/19 08:28 131/60 04/08/19 08:28 84 131/60 04/08/19 08:00 98.0 84 19 131/60 (83) 100 04/08/19 04:00 98.0 65 16 138/61 (86) 99 04/08/19 00:00 97.8 69 18 141/62 (88) 97 04/07/19 20:14 Room Air 04/07/19 20:00 97.9 73 18 157/77 (103) 99 04/07/19 16:00 98.4 71 18 136/66 (89) 98 04/07/19 15:07 98.8 Intake and Output 04/07/19 04/08/19 18:59 06:59 Intake Total 600 ml 1600 ml Output Total 500 ml Balance 600 ml 1100 ml Intake Oral 600 ml 600 ml Other 1000 ml Output Urine Total 500 ml # Voids 4 # Bowel Movements 4 2 Height (Feet): 5 Height (Inches): 7.00 Weight (Pounds): 138 Objective CV Rr Lungs CTA Abd SNT BS + E No CCe Kellee Ansari MD April 08, 2019 14:08
--- NOTE | 2019-04-08 14:24 | NUR ---
NURSE NOTES: given discharge report to madelin garcia. spoke to Christophe. resume home medications. no IV meds. will f/u for discharging.
--- NOTE | 2019-04-08 15:01 | Consultation ---
History of Present Illness General Date patient seen: April 08, 2019 Chief Complaint: Present Illness Allergies: Coded Allergies: IODINE (Verified Allergy, Unknown, 05/29/09) Uncoded Allergies: IV dye (Allergy, Unknown, 01/08/15) Medication History Scheduled Amlodipine Besylate* (Amlodipine Besylate*), 10 MG ORAL DAILY, (Reported) Atenolol* (Tenormin*), 50 MG ORAL DAILY Bisacodyl* (Dulcolax*), 10 MG ORAL BID, (Reported) Docusate Sodium* (Docusate Sodium*), 250 MG ORAL TWICE A DAY, (Reported) Famotidine (Famotidine), 20 MG ORAL QHS, (Reported) Ferrous Sulfate* (Ferrous Sulfate*), 325 MG ORAL DAILY, (Reported) Furosemide* (Lasix*), 20 MG ORAL BID, (Reported) Isosorbide Mononitrate (Isosorbide Mononitrate Er), 30 MG PO DAILY, (Reported) Lorazepam* (Lorazepam*), 1 MG ORAL BID, (Reported) Montelukast Sodium* (Montelukast Sodium*), 10 MG ORAL DAILY, (Reported) Pantoprazole* (Pantoprazole*), 40 MG ORAL BID, (Reported) Rosuvastatin Calcium* (Crestor*), 10 MG ORAL QHS, (Reported) Tamsulosin HCl (Flomax), 0.4 MG ORAL QHS, (Reported) Scheduled PRN Acetaminophen* (Acetaminophen Extra Strength*), 500 MG ORAL Q6H PRN for For Pain , (Reported) Discontinued Medications Acetaminophen* (Acetaminophen 325MG Tablet*), 650 MG ORAL Q6H PRN for Temp > 100.5 Discontinued Reason: Pt stopped taking med Aspirin (Aspirin), 81 MG PO DAILY Discontinued Reason: Pt stopped taking med Cephalexin* (Keflex*), 500 MG ORAL EVERY 6 HOURS Discontinued Reason: Therapy completed Clonidine HCl (Clonidine HCl), 0.1 MG ORAL EVERY 8 HOURS Discontinued Reason: Pt stopped taking med Docusate Sodium* (Colace*), 100 MG ORAL TWICE A DAY Discontinued Reason: Medication dose changed Furosemide* (Lasix*), 20 MG ORAL DAILY Discontinued Reason: Medication dose changed Hydralazine HCl (Hydralazine HCl), 50 MG ORAL Q6HR Discontinued Reason: Pt stopped taking med Ibuprofen* (Motrin*), 600 MG ORAL Q6H PRN for For Pain Discontinued Reason: Pt stopped taking med Lisinopril (Lisinopril*), 40 MG ORAL DAILY Discontinued Reason: Pt stopped taking med Lorazepam* (Ativan*), 2 MG ORAL THREE TIMES A DAY, (Reported) Discontinued Reason: Medication dose changed Lorazepam* (Ativan*), 2 MG ORAL EVERY 8 HOURS PRN for Restlessness Discontinued Reason: Medication dose changed Methadone Hcl* (Methadone*), 105 MG PO DAILY, (Reported) Discontinued Reason: Pt stopped taking med Methadone Hcl* (Methadone*), 115 MG ORAL DAILY Discontinued Reason: Pt stopped taking med Nitroglycerin (Nitrostat), (Reported) Discontinued Reason: Pt stopped taking med Oxycodone Hcl/Acetaminophen 10-325* (Oxycodone-Acetaminophen 10-325*), (Reported ) Discontinued Reason: Pt stopped taking med Potassium Chloride (Potassium Chloride), 20 MEQ PO DAILY Discontinued Reason: Pt stopped taking med Quetiapine Fumarate* (Seroquel*), (Reported) Discontinued Reason: Pt stopped taking med Quetiapine Fumarate* (Seroquel*), 200 MG ORAL QHS Discontinued Reason: Pt stopped taking med Ranitidine Hcl* (Zantac*), 300 MG ORAL DAILY Discontinued Reason: Pt stopped taking med Sucralfate (Carafate), (Reported) Discontinued Reason: Pt stopped taking med Zolpidem Tartrate* (Ambien*), 5 MG ORAL HSPRN PRN for Insomnia Discontinued Reason: Pt stopped taking med Patient History Healthcare decision maker ARCADIO BECKMAN Resuscitation status Advanced Directive on File No Physical Exam Last 24 Hour Vital Signs Date Time Temp Pulse Resp B/P (MAP) Pulse Ox O2 Delivery O2 Flow Rate FiO2 04/08/19 12:00 98.1 67 20 120/68 (85) 98 04/08/19 09:00 Room Air 04/08/19 08:28 131/60 04/08/19 08:28 84 131/60 04/08/19 08:00 98.0 84 19 131/60 (83) 100 04/08/19 04:00 98.0 65 16 138/61 (86) 99 04/08/19 00:00 97.8 69 18 141/62 (88) 97 04/07/19 20:14 Room Air 04/07/19 20:00 97.9 73 18 157/77 (103) 99 04/07/19 16:00 98.4 71 18 136/66 (89) 98 04/07/19 15:07 98.8 Intake and Output 04/07/19 04/08/19 18:59 06:59 Intake Total 600 ml 1600 ml Output Total 500 ml Balance 600 ml 1100 ml Intake Oral 600 ml 600 ml Other 1000 ml Output Urine Total 500 ml # Voids 4 # Bowel Movements 4 2 Height (Feet): 5 Height (Inches): 7.00 Weight (Pounds): 138 Medications Current Medications Medications (Trade) Dose Ordered Sig/Veda Route PRN Reason Start Time Stop Time Status Last Admin Dose Admin Acetaminophen (Tylenol) 500 mg Q6H PRN ORAL For Mild Pain/fever 04/04/19 19:15 05/04/19 19:14 Amlodipine Besylate (Norvasc) 10 mg DAILY ORAL 04/05/19 09:00 05/05/19 08:59 04/08/19 08:28 Bisacodyl (Dulcolax) 10 mg Q12HR ORAL 04/04/19 21:00 05/04/19 20:59 04/08/19 08:27 Docusate Sodium (Colace) 250 mg TWICE A DAY ORAL 04/05/19 09:00 05/05/19 08:59 04/08/19 08:27 Famotidine (Pepcid) 20 mg QHS ORAL 04/04/19 21:00 05/04/19 20:59 04/07/19 20:10 Ferrous Sulfate (Feosol) 325 mg DAILY ORAL 04/05/19 09:00 05/05/19 08:59 04/08/19 08:27 Furosemide (Lasix) 20 mg BID ORAL 04/05/19 09:00 05/05/19 08:59 04/08/19 08:27 Heparin Sodium (Porcine) (Heparin 5000 units/ml) 5,000 units EVERY 12 HOURS SUBQ 04/04/19 21:00 05/04/19 20:59 04/08/19 08:31 Hydromorphone HCl (Dilaudid) 2 mg Q6H PRN IVP Severe Pain (Pain Scale 7-10) 04/04/19 18:00 04/11/19 17:59 04/08/19 14:52 Isosorbide Mononitrate (Imdur) 30 mg DAILY ORAL 04/05/19 09:00 05/05/19 08:59 04/08/19 08:28 Lorazepam (Ativan) 1 mg Q12HR ORAL 04/04/19 21:00 04/11/19 20:59 04/08/19 08:27 Montelukast Sodium (Singulair) 10 mg DAILY ORAL 04/05/19 09:00 05/05/19 08:59 04/08/19 08:32 Pantoprazole (Protonix) 40 mg BID ORAL 04/05/19 09:00 05/05/19 08:59 04/08/19 08:32 Tamsulosin HCl (Flomax) 0.4 mg QHS ORAL 04/04/19 21:00 05/04/19 20:59 04/07/19 20:10 Assessment/Plan Assessment/Plan: (1) Lumbar DDD (2) Lumbar Spondylosis (3) Lumbar Radiculopathy Seen dictated. Car Quiros April 08, 2019 15:01
--- NOTE | 2019-04-08 15:52 | NUR ---
NURSE NOTES: scheduled transportation for dc. ETA @[id number].
[2019-04-08 16:00] VITALS: BP 136/68
--- NOTE | 2019-04-08 16:42 | NUR ---
BLACK [employer] COATING EQUIPMENT TENDERDATA ENTRY REPRESENTATIVE SI:INTRACTABLE BACK PAIN . HX OF PROSTATE CANCER VS: BP 120/68, P 70, T 97.9, RR 20, SpO2 100 RBC 3.83, Hgb 11.9, HCT 36.0, Na 146, CR 1.[address]: Erosive changes involving the vertebral endplates about the L1-2 disc. IS:DILAUDID 2mg IVP SINGULAIR 10mg PROTONIX 40mg HEPARIN SUBQ NORVASC 10mg IMDUR 30mg MED/SURG STATUS
--- NOTE | 2019-04-08 18:00 | NUR ---
NURSE NOTES: patient discharged to [facility] via ambulance with fair condition. no respiratory distress noted. checked and counted belonging with patient and obtained sign. provided dc packet and obtained sign. removed IV and ID band. all needs attended.
--- NOTE | 2019-04-08 20:30 | Consultation ---
DATE OF CONSULTATION: 04/08/2019 PAIN MANAGEMENT CONSULTATION CONSULTING PHYSICIAN: Sheila Saldaña M.D. PHYSICIAN POURER: Ana M Jaramillo REFERRING PHYSICIAN: Kellee Ansari M.D. CHIEF COMPLAINT: Low back pain. HISTORY OF PRESENT ILLNESS: The patient is an 83-year-old male who is being seen on the Med/Surg floor of [facility] for comprehensive pain management consultation. The patient is a known patient from Dr. Saldaña's office with current complaints of lower back pain. Upon admission, a CT scan of lumbar spine was ordered showing the patient having erosive changes involving the vertebral endplates about the L1-L2 discs, osteomyelitis not excluded, severe degenerative changes of the lumbar spine as described above, right convex scoliosis, multilevel disk disease and facet arthropathy, multilevel vertebral compression fracture presumably on the basis of osteoporosis as described above. As an outpatient was recently prescribed oxycodone 15 mg three times a day on March 13, 2019. We were consulted to assess if an epidural injection would be effective for his pain. However at this time, no MRI is able to be done due to pacemaker. Upon examination of the CT scan, epidural would not be correlated however the patient does have MRI of the lumbar spine from [facility] which he had prior to pacemaker placement. He was advised to make a follow-up appointment with Piotr's office for reassessment of his condition and treatment at that time. Again, the patient received oxycodone prescription on March 13, 2019 due to this an opioid prescription is unable to be prescribed at this time. However when he follows up in the office, we will reassess and discuss with him options of the pain medications and treatment. The patient seems to understand and will be calling to make an appointment. REVIEW OF SYSTEMS: Denies rash, fever, chills, sweating, dizziness, drowsiness, blurred vision, sore throat, or change in weight. No shortness of breath or chest pain. No nausea, vomiting, diarrhea, blood in the stool or urine. No bowel or bladder incontinence. No dysuria. He is complaining of low back pain. PHYSICAL EXAMINATION: GENERAL: Alert, awake, and oriented. VITAL SIGNS: Blood pressure 120/68, heart rate 67, O2 saturation 98%, respirations 20, temperature 98.1 degrees Fahrenheit. LUNGS: Decreased breath sounds bilaterally. HEART: S1 and S2 regular. ABDOMEN: Soft and nontender. BACK: Range of motion is decreased in flexion and extension. EXTREMITIES: Upper and lower extremity range of motion is decreased due to patient's condition. No cyanosis. No clubbing. Sensory is intact. Reflexes are not obtainable. No adenopathy. ASSESSMENT AND PLAN: This is a 83-year-old male with lumbar degenerative disease, lumbar spondylosis, lumbar radiculopathy. The patient will be discontinued off the Dilaudid, started on Percocet 10/325 one tablet every 4 hours as needed for severe pain. He was again advised to call Dr. Saldaña's office for follow-up appointment and bring his MRI results to be reviewed at that time. No prescription for discharge will be prescribed at this time due to patient having received his oxycodone prescription on March 13, 2019. Once he returns for followup, we will reassess his condition and treatment and medication options at that time. The patient will be discharged as per the general assembler. The patient was discussed with Dr. Saldaña and Dr. Saldaña concurred. We will follow the patient. Thank you very much for the courtesy of this consultation. Sheila Saldaña M.D. CUONG Jaramillo DR: Rosendo JOB#: [id number] CC:
--- NOTE | 2019-04-09 02:45 | Progress Note ---
DATE: 04/06/2019 NOTE: POOR AUDIO SUBJECTIVE: The patient now presents with discomfort in low back and difficulty ambulating. Exam: The patient resting comfortably. Sensation in the lower extremities is grossly intact to light touch. Mild paralumber muscle spasms. Assesment: multilevel, lumbar stenosis osteoporosis multiple lumber compression fractures. DISCUSSION: At this point, I recommend lumbar epidural injection. Cased discussed with PMD. I will try to coordinate otherwise patient can follow up with his pain management doctor as outpatient. Anand Washington M.D. DR: PRAVIN JOB#: [id number] CC: BRIANDA
--- NOTE | 2019-04-09 13:35 | Discharge Summary ---
Discharge Summary Discharge Summary _ DATE OF ADMISSION: 04/04/2019 DATE OF DISCHARGE: 04/08/2019 DISCHARGED BY: Dr. Kellee Ansari CONSULTANTS: Dr. Darshan Washington BRIEF HOSPITAL COURSE: Patient is an 83-year-old male, with history of narcotic dependence. He gets narcotics from different sources. 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 The patient lives in a [facility]. He was referred to the hospital due to severe low back pain. He has medical history significant for ischemic heart disease, hypertensive cardiovascular disease, history of narcotic abuse, COPD and status post pacemaker. On evaluation at the ED, vital signs were stable. Blood work did not show any leukocytosis. Myoglobin and hematocrit were stable. BUN 15, creatinine 1.4. Spine CT showed multiple lytic lesions as well as chronic compression fractures. Patient was then admitted for intractable back pain. Orthopedic surgeon was consulted. Patient CT scan showed severe osteoporosis with multilevel compression fractures with interbody fusion at L3-L4, T11-T12 and T12-L1. Patient has severe degenerative disc disease of the lumbar spine with multiple compression fractures. Patient has failed back syndrome. He is not a good surgical candidate. He was recommended PT and OT. Patient was recommended may benefit from epidural injections or possibly some type of spinal cord stimulator. He was given pain management. replenishment specialist was consulted. Patient was unable to get MRI due to pacemaker, however patient stated he had a prior MRI done at [facility] prior to the pacemaker placement. He was advised to follow-up as outpatient with Dr. Saldaña''s office for reassessment of his condition and treatment. He was eventually discharged home. FINAL DIAGNOSES: Severe lumbar spondylosis/lumbar stenosis Osteoporosis Multiple lumbar compression fractures DISPOSITION: Patient was discharged back to [facility]. DISCHARGE MEDICATIONS: Refer to Discharge Medication List. DISCHARGE INSTRUCTIONS: Follow-up in a week. I have been assigned to complete a discharge summary on this account, I was not involved with the patient's management. Mel Josue NP April 09, 2019 13:35
== END 2019-04-08 18:10 | DRG 552 ==
LOC: EDBD 12:03 → EMR 14:06 → 4E 14:20 → EDBEDREQ 15:25 → 4E 16:11
DX: M47.896 Other spondylosis, lumbar region (principal); M80.88XA Other osteoporosis with current pathological fracture, vertebra(e), initial encounter for fracture; M48.061 Spinal stenosis, lumbar region without neurogenic claudication; C61 Malignant neoplasm of prostate; M81.0 Age-related osteoporosis without current pathological fracture; Z88.8 Allergy status to other drugs, medicaments and biological substances; Z87.891 Personal history of nicotine dependence; I11.9 Hypertensive heart disease without heart failure; F19.11 Other psychoactive substance abuse, in remission; J44.9 Chronic obstructive pulmonary disease, unspecified; F11.10 Opioid abuse, uncomplicated
CPT/HCPCS: 36415; 72131; 80053; 83690; 85025; 87081; 96374; 96375; 96376; 99285

== ENCOUNTER 2019-05-17 15:09 | Emergency (ER) | payer MEDICARE, BC ==
[~2019-05-17] VITALS: Ht 170.2 cm; Wt 64.4 kg
[~2019-05-17 15:09] MED LIST changes: +ACETAMINOPHEN500 M3 ORAL; +AMLODIPINE BESY10 MG ORAL; +ASCORBIC ACID500 MG ORAL; +BISACODYL5 MG ORAL; +CRESTOR10 M2 ORAL; +DOCUSATE SODIU250 MG ORAL; +FAMOTIDINE20 MG ORAL; +FERROUS SULFAT325 MG ORAL; +FLOMAX0.4 MG ORAL; +FUROSEMIDE20 M1 ORAL; +HUMALOG100 UNIT/4 SUBQ; +ISOSORBIDE MONO30 M1 PO; +LORAZEPAM1 MG ORAL; +MONTELUKAST SOD10 MG ORAL; +MULTIVITAMINS1 EAC2 ORAL; +MULTIVITAMINS1 EAC8 ORAL; +NORCO 10-325 T1 EACH ORAL; +NORCO 5-325 TA1 EACH ORAL; +NORVASC5 MG ORAL; +NUTRISOURCE FI205 GM PO; +PANTOPRAZOLE SO40 MG ORAL
--- NOTE | 2019-05-17 15:15 | NUR ---
ED Nurse Note: Patient walked into ED from home c/o left chest pain radiating to his left arm 9-09/09. patient reports he had chest pain starting last night. patient reports he has left chest pace maker in place for bradycardia
[2019-05-17 15:26] VITALS: BP 160/69
[2019-05-17 16:00] LABS: APPEARANCE,URINE CLEAR; BILIRUBIN, URINE NEGATIVE (NEGATIVE); COLOR,URINE PALE YELLOW; GLUCOSE, URINE (UA) NEGATIVE (NEGATIVE); KETONES,URINE NEGATIVE (NEGATIVE); LEUKOCYTE ESTERASE ,URINE NEGATIVE (NEGATIVE); NITRITE,URINE NEGATIVE (NEGATIVE); PH,URINE 5 (4.5-8.0); PROTEIN,URINE NEGATIVE (NEGATIVE); UROBILINOGEN,URINE NORMAL MG/DL (0.0-1.0)
[2019-05-17 16:03] LABS: BASOPHILS % (AUTO) 2.4 % (0.0-2.0); EOSINOPHILS % (AUTO) 7.1 % (0.0-3.0); HEMATOCRIT 34.8 % (42.0-52.0); HEMOGLOBIN 11.8 G/DL (14.2-18.0); LYMPHOCYTES % (AUTO) 38.1 % (20.0-45.0); MEAN CORPUSCULAR VOLUME 91 FL (80-99); MONOCYTES % (AUTO) 13.1 % (1.0-10.0); NEUTROPHILS % (AUTO) 39.4 % (45.0-75.0); PLATELET COUNT 171 K/UL (150-450); RED BLOOD COUNT 3.84 M/UL (4.70-6.10); RED CELL DISTRIBUTION WIDTH 11.5 % (11.6-14.8); WHITE BLOOD COUNT 5.9 K/UL (4.8-10.8)
[2019-05-17 16:04] LABS: ANION GAP 5 mmol/L (5-15); BLOOD UREA NITROGEN 14 mg/dL (7-18); CARBON DIOXIDE 30 MMOL/L (21-32); CHLORIDE 107 MMOL/L (98-107); CREATININE 1.4 MG/DL (0.55-1.30); POTASSIUM 4.6 MMOL/L (3.5-5.1); SODIUM 142 MMOL/L (136-145)
[2019-05-17] MEDS ORDERED: Nitroglycerin Subl 0.4mg tab SL PRN (16:15)
[2019-05-17 16:19] LABS: ALANINE AMINOTRANSFERASE 19 U/L (12-78); ALBUMIN 3.5 G/DL (3.4-5.0); ALBUMIN/GLOBULIN RATIO 1.1 (1.0-2.7); ALKALINE PHOSPHATASE 98 U/L (46-116); ASPARTATE AMINO TRANSFERASE 17 U/L (15-37); BILIRUBIN,TOTAL 0.3 MG/DL (0.2-1.0); CKMB 2.1 NG/ML (0.0-3.6); CREATINE KINASE 102 U/L (26-308)
[2019-05-17] MEDS ORDERED: LORazepam Inj 2mg/ml 1ml IV ONE (16:30)
[2019-05-17] MEDS ORDERED: LIDOCAINE700 M1 TP (16:51)
[2019-05-17] MEDS ORDERED: ACETAMINOPHEN500 M3 ORAL (16:51)
[2019-05-17 17:02] VITALS: BP 158/67
--- NOTE | 2019-05-17 17:03 | NUR ---
ER DISCHARGE NOTE: Patient is cleared to be discharged per ERMD DR LOVE, pt is aox4, on room air, with stable vital signs. pt was given dc and prescription instructions, pt was able to verbalize understanding, pt id band and iv site removed without complications. pt is able to ambulate with steady gait. pt took all belongings.
--- NOTE | 2019-05-17 17:11 | Emergency Room Report ---
History of Present Illness General Chief Complaint: Chest Pain Source: Patient Present Illness HPI Patient is a 84-year-old male brought in by self for increased chest discomfort. Patient had prior history of chronic pain. Patient reports previous to being on Suboxone. Patient had previously been noted to be seeing multiple different providers for narcotic pain medications. Patient previously been admitted to this facility for chest discomfort. He reports having chest pain onset approximately 2 days ago. He reports having most recent episode lasting approximately 8 hours constant in nature. Patient denies any fever. He denies any shortness of breath. He has had not been having any cough. Patient reports having also some prior history of anxiety.Patient had prior placed pacemaker Allergies: Coded Allergies: IODINE (Verified Allergy, Unknown, 05/29/09) Uncoded Allergies: IV dye (Allergy, Unknown, 01/08/15) Patient History Past Medical History: see triage record Reviewed Nursing Documentation: PMH: Agreed; PSxH: Agreed Nursing Documentation-PMH Past Medical History: No History, Except For Hx Cardiac Problems: Yes Hx Hypertension: Yes Hx Pacemaker: No Hx Asthma: No Hx COPD: No Hx Diabetes: No Hx Cancer: Yes Hx Gastrointestinal Problems: No Hx Neurological Problems: No Hx Cerebrovascular Accident: No Hx Seizures: No Review of Systems All Other Systems: negative except mentioned in HPI Physical Exam Vital Signs Date Time Temp Pulse Resp B/P (MAP) Pulse Ox O2 Delivery O2 Flow Rate FiO2 05/17/19 15:11 98.6 59 17 166/79 (108) 98 Room Air Sp02 EP Interpretation: reviewed, normal General Appearance: normal inspection, well appearing, no apparent distress, alert, GCS 15, Chronically Ill Head: atraumatic ENT: normal ENT inspection, hearing grossly normal, normal voice Neck: normal inspection, full range of motion, supple, no bony tend Respiratory: normal inspection, lungs clear, normal breath sounds, no respiratory distress, no retraction, no wheezing Cardiovascular #1: regular rate, rhythm, no edema Gastrointestinal: normal inspection, normal bowel sounds, non tender, soft, no guarding, no hernia Genitourinary: no CVA tenderness Musculoskeletal: normal inspection, back normal, normal range of motion Neurologic: normal inspection, alert, oriented x3, responsive, intake specialist III-XII nml as tested, speech normal Psychiatric: normal inspection, judgement/insight normal, mood/affect normal Skin: normal inspection, normal color, no rash Medical Decision Making Diagnostic Impression: Primary Impression: Atypical chest pain ER Course Patient presented for chest pain. Differential diagnosis include was not limited to congestive heart failure, myocardial infarction, chest wall contusion among others. Because of complexity of patient's case laboratory testing and imaging studies were ordered. Patient's laboratory testing was unremarkable. Patient was noted to have chronic pain history. He was given nitroglycerin. Patient was also given benzodiazepine due to stated anxiety.Given the patient's prolonged history of chest discomfort. Patient was noted to have a negative troponin. Patient was given IV Lasix. Patient appears to be fixated on obtaining on narcotic pain medications. Patient does not appear to have any acute issues which would require narcotics to be used. Patient was noted to have normal vital signs. Patient was given Lasix due to mild elevated BNP. Chest x-ray shows normal cardiac size without evident infiltrate and pacemaker placement. Patient appears stable for discharge and continued to request narcotic prescription. Patient was advised that he should follow up with his primary care physician for narcotic prescriptions and controlled medications. Labs Test 05/17/19 15:15 05/17/19 15:45 White Blood Count 5.9 K/UL (4.8-10.8) Red Blood Count 3.84 M/UL (4.70-6.10) Hemoglobin 11.8 G/DL (14.2-18.0) Hematocrit 34.8 % (42.0-52.0) Mean Corpuscular Volume 91 FL (80-99) Mean Corpuscular Hemoglobin 30.8 PG (27.0-31.0) Mean Corpuscular Hemoglobin Concent 34.0 G/DL (32.0-36.0) Red Cell Distribution Width 11.5 % (11.6-14.8) Platelet Count 171 K/UL (150-450) Mean Platelet Volume 7.6 FL (6.5-10.1) Neutrophils (%) (Auto) 39.4 % (45.0-75.0) Lymphocytes (%) (Auto) 38.1 % (20.0-45.0) Monocytes (%) (Auto) 13.1 % (1.0-10.0) Eosinophils (%) (Auto) 7.1 % (0.0-3.0) Basophils (%) (Auto) 2.4 % (0.0-2.0) Sodium Level 142 MMOL/L (136-145) Potassium Level 4.6 MMOL/L (3.5-5.1) Chloride Level 107 MMOL/L (98-107) Carbon Dioxide Level 30 MMOL/L (21-32) Anion Gap 5 mmol/L (5-15) Blood Urea Nitrogen 14 mg/dL (7-18) Creatinine 1.4 MG/DL (0.55-1.30) Estimat Glomerular Filtration Rate mL/min (>60) Glucose Level 102 MG/DL (74-106) Calcium Level 9.0 MG/DL (8.5-10.1) Total Bilirubin 0.3 MG/DL (0.2-1.0) Aspartate Amino Transf (AST/SGOT) 17 U/L (15-37) Alanine Aminotransferase (ALT/SGPT) 19 U/L (12-78) Alkaline Phosphatase 98 U/L (46-116) Total Creatine Kinase 102 U/L (26-308) Creatine Kinase MB 2.1 NG/ML (0.0-3.6) Creatine Kinase MB Relative Index 2.0 Troponin I 0.000 ng/mL (0.000-0.056) Pro-B-Type Natriuretic Peptide 662 pg/mL (0-125) Total Protein 6.7 G/DL (6.4-8.2) Albumin 3.5 G/DL (3.4-5.0) Globulin 3.2 g/dL Albumin/Globulin Ratio 1.1 (1.0-2.7) Lipase 113 U/L (73-393) Urine Color Pale yellow Urine Appearance Clear Urine pH 5 (4.5-8.0) Urine Specific [place] 1.005 (1.005-1.035) Urine Protein Negative (NEGATIVE) Urine Glucose (UA) Negative (NEGATIVE) Urine Ketones Negative (NEGATIVE) Urine Blood Negative (NEGATIVE) Urine Nitrite Negative (NEGATIVE) Urine Bilirubin Negative (NEGATIVE) Urine Urobilinogen Normal MG/DL (0.0-1.0) Urine Leukocyte Esterase Negative (NEGATIVE) Urine Opiates Screen Negative (NEGATIVE) Urine Barbiturates Screen Negative (NEGATIVE) Phencyclidine (PCP) Screen Negative (NEGATIVE) Urine Amphetamines Screen Negative (NEGATIVE) Urine Benzodiazepines Screen Negative (NEGATIVE) Urine Cocaine Screen Negative (NEGATIVE) Urine Marijuana (THC) Screen Negative (NEGATIVE) Last Vital Signs Date Time Temp Pulse Resp B/P (MAP) Pulse Ox O2 Delivery O2 Flow Rate FiO2 05/17/19 17:02 98.6 59 15 158/67 100 Room Air Status: improved Disposition: HOME, SELF-CARE Condition: Stable Scripts Acetaminophen* (ACETAMINOPHEN EXTRA STRENGTH*) 500 Mg Tablet 500 MG ORAL Q6H, #30 TAB Prov: Valentino Khan MD 05/17/19 Lidocaine (Lidocaine) 1 Each Adh..patch 5 % TP DAILY, #30 PATCH Prov: Valentino Khan MD 05/17/19 Patient Instructions: Nonspecific Chest Pain Valentino Khan MD May 17, 2019 17:11
--- NOTE | 2019-05-17 18:42 | Diagnostic Imaging Report ---
Indication: Chest pain Technique: One view of the chest Comparison: 11/07/2015 Findings: There is retrocardiac hiatal hernia, not definitely visible previously. The heart is mildly enlarged. The lungs and pleural spaces are clear. The aorta is tortuous ectatic and calcified. There is a healed fracture deformity of the right shoulder, not evident previously. There is a left chest pacemaker, also not evident previously Impression: No acute process Mild cardiomegaly Incidental findings as noted
--- NOTE | 2019-05-18 16:05 | Cardiology Report ---
APPROVED REPORT EKG Measurement Heart [id number] atrial paced ventriualr sensed
== END 2019-05-17 17:04 | disposition home or self-care (01) ==
LOC: EDBEDREQ 15:40 → EMR 16:06 → CANBEDREQ 16:57 → EMR 17:04
DX: R07.9 Chest pain, unspecified (principal); Z91.041 Radiographic dye allergy status; F41.9 Anxiety disorder, unspecified; Z95.0 Presence of cardiac pacemaker; I10 Essential (primary) hypertension; Z85.9 Personal history of malignant neoplasm, unspecified
CPT/HCPCS: 36415; 71045; 80053; 80307; 81003; 82550; 82553; 83690; 83880; 84484; 85025; 93005; 96374; 96375; 99284; J1940

== ENCOUNTER 2020-02-12 18:06 | Observation (INO) | payer MEDICARE, BC ==
[~2020-02-12] VITALS: Ht 170.2 cm; Wt 64.4 kg
[~2020-02-12 18:06] MED LIST changes: +LIDOCAINE700 M1 TP
[2020-02-12] MEDS ORDERED: OMEPRAZOLE40 M1 ORAL (18:10)
[2020-02-12] MEDS ORDERED: Morphine Sulfate 4mg/ml Inj (IV USE ONLY) IVP ONE ×2 (18:15→21:15)
[2020-02-12] MEDS ORDERED: Mylanta II UD 30ml ORAL ONE (18:15)
--- NOTE | 2020-02-12 18:22 | Emergency Room Report ---
History of Present Illness General Chief Complaint: Chest Pain Source: Patient, EMS Present Illness HPI Patient complained of chest pain. Paramedics report was non-provoked. Left- sided anterior radiating up into his neck. He felt weakness with this. There were no palpitations. He rates the pain 7/10 and somewhat sharp and pressure. Paramedics administered aspirin 325 and nitroglycerin. This did not affect the the pain very much. The patient denies productive cough. He did have some episodes of emesis that are bilious. He denies hematemesis or coffee grounds. Denies fevers or chills. Risk factors for cardiac disease: Hypertension, distant history of smoking. Denies family history, high cholesterol or diabetes Patient takes 65 mg of methadone a day for prostate cancer. Chronic back pain. No fevers, chills, sore throat, palpitations, diarrhea, dysuria, abdominal pain , shortness of breath, rashes, depression, anxiety, visual changes, dizziness, headache. COVID-19 risk:Travel to affect: No Allergies: Coded Allergies: IODINE (Verified Allergy, Unknown, 05/29/09) Uncoded Allergies: IV dye (Allergy, Unknown, 01/08/15) Patient History Past Medical History: see triage record Past Surgical History: pacemaker Social History: Denies: smoking - Distant, alcohol use, drug use Social History Narrative Board and care facility Reviewed Nursing Documentation: PMH: Agreed; PSxH: Agreed Nursing Documentation-PMH Past Medical History: No History, Except For Hx Hypertension: Yes Hx Pacemaker: Yes Hx Asthma: No Hx COPD: No Hx Diabetes: No Hx Cancer: Yes Hx Gastrointestinal Problems: No History Of Psychiatric Problem: Yes - bipolar Hx Neurological Problems: No Hx Cerebrovascular Accident: No Hx Seizures: No Review of Systems All Other Systems: negative except mentioned in HPI Physical Exam Vital Signs Date Time Temp Pulse Resp B/P (MAP) Pulse Ox O2 Delivery O2 Flow Rate FiO2 02/12/20 18:02 98.6 55 16 132/63 (86) 99 Room Air Sp02 EP Interpretation: reviewed, normal General Appearance: well appearing, no apparent distress, GCS 15 Head: normocephalic Eyes: bilateral eye normal inspection, bilateral eye PERRL, bilateral eye EOMI ENT: moist mucus membranes - Plates Neck: supple Respiratory: chest non-tender, lungs clear, normal breath sounds Cardiovascular #1: regular rate, rhythm, no edema Cardiovascular #2: 2+ radial (L) Gastrointestinal: normal inspection, normal bowel sounds, non tender, no mass, non-distended Genitourinary: no CVA tenderness Musculoskeletal: back normal, normal range of motion, no calf tenderness Neurologic: alert, oriented x3, grossly normal Psychiatric: mood/affect normal Skin: no rash, warm/dry, other - [facility] Medical Decision Making Diagnostic Impression: Primary Impression: Chest pain Qualified Codes: R07.9 - Chest pain, unspecified Additional Impressions: DDD (degenerative disc disease), lumbar History of prostate cancer ER Course Patient presents with left-sided chest pain. History is somewhat atypical however patient has risk factors and age. Differential includes acute myocardial infarction, unstable angina, chest wall pain, gastrointestinal origin amongst others. Patient evaluated with EKG chest x-ray and labs. Patient unchanged with aspirin and nitroglycerin in the field. Zofran and morphine ordered. EKG AV sequential pacemaker with nonspecific ST-T wave changes. Chest x-ray no infiltrate. Labs remarkable for negative troponin. Discussed with Dr. Ansari who agrees with observation to exclude cardiac injury. Analgesia repeated. Laboratory Tests Test 02/12/20 18:23 02/12/20 18:30 Urine Color Pale yellow Urine Appearance Clear Urine pH 6 (4.5-8.0) Urine Specific [place] 1.005 (1.005-1.035) Urine Protein Negative (NEGATIVE) Urine Glucose (UA) Negative (NEGATIVE) Urine Ketones Negative (NEGATIVE) Urine Blood Negative (NEGATIVE) Urine Nitrite Negative (NEGATIVE) Urine Bilirubin Negative (NEGATIVE) Urine Urobilinogen Normal MG/DL (0.0-1.0) Urine Leukocyte Esterase Negative (NEGATIVE) White Blood Count 6.1 K/UL (4.8-10.8) Red Blood Count 3.82 M/UL (4.70-6.10) L Hemoglobin 11.8 G/DL (14.2-18.0) L Hematocrit 36.9 % (42.0-52.0) L Mean Corpuscular Volume 97 FL (80-99) Mean Corpuscular Hemoglobin 30.9 PG (27.0-31.0) Mean Corpuscular Hemoglobin Concent 32.0 G/DL (32.0-36.0) Red Cell Distribution Width 13.7 % (11.6-14.8) Platelet Count 138 K/UL (150-450) L Mean Platelet Volume 10.6 FL (6.5-10.1) H Neutrophils (%) (Auto) 50.7 % (45.0-75.0) Lymphocytes (%) (Auto) 34.6 % (20.0-45.0) Monocytes (%) (Auto) 7.5 % (1.0-10.0) Eosinophils (%) (Auto) 5.2 % (0.0-3.0) H Basophils (%) (Auto) 2.0 % (0.0-2.0) Prothrombin Time 11.7 SEC (9.30-11.50) H Prothrombin Time INR 1.1 (0.9-1.1) Activated Partial Thromboplast Time 22 SEC (23-33) L Sodium Level 140 MMOL/L (136-145) Potassium Level 3.4 MMOL/L (3.5-5.1) L Chloride Level 101 MMOL/L (98-107) Carbon Dioxide Level 33 MMOL/L (21-32) H Anion Gap 7 mmol/L (5-15) Blood Urea Nitrogen 18 mg/dL (7-18) Creatinine 1.6 MG/DL (0.55-1.30) H Estimate Glomerular Filtration Rate 41.5 mL/min (>60) Glucose Level 90 MG/DL (74-106) Calcium Level 8.4 MG/DL (8.5-10.1) L Total Bilirubin 0.3 MG/DL (0.2-1.0) Aspartate Amino Transferase (AST) 29 U/L (15-37) Alanine Aminotransferase (ALT) 22 U/L (12-78) Alkaline Phosphatase 113 U/L (46-116) Total Creatine Kinase 179 U/L (26-308) Troponin I 0.000 ng/mL (0.000-0.056) Pro-B-Type Natriuretic Peptide 812 pg/mL (0-125) H Total Protein 7.0 G/DL (6.4-8.2) Albumin 3.6 G/DL (3.4-5.0) Globulin 3.4 g/dL Albumin/Globulin Ratio 1.1 (1.0-2.7) Lipase 83 U/L (73-393) EKG Diagnostic Results Rate: normal, other - Paced Rhythm: other - AV sequential paced ST Segments: no acute changes Rhythm Strip Diag. Results EP Interpretation: yes Rhythm: no PVC's, no ectopy, other - AV sequential pacemaker rate 57 Chest X-Ray Diagnostic Results Chest X-Ray Diagnostic Results : Chest X-Ray Ordered: Yes # of Views/Limited/Complete: 1 View Indication: Chest Pain EP Interpretation: Yes Interpretation: no consolidation, no effusion, no pneumothorax Impression: No acute disease Electronically Signed by: Electronically signed by Antonio Izaguirre MD Last Vital Signs Date Time Temp Pulse Resp B/P (MAP) Pulse Ox O2 Delivery O2 Flow Rate FiO2 02/13/20 00:00 57 02/13/20 00:00 97.6 16 139/65 (89) 96 02/12/20 23:50 Nasal Cannula 2.0 02/12/20 20:30 100 Status: improved Disposition: PLACE IN OBSERVATION Condition: Serious Antonio Izaguirre MD Feb 12, 2020 18:22
[2020-02-12 18:30] VITALS: BP 133/60
[2020-02-12] MEDS ORDERED: Mylanta II UD 30ml ONE (18:39)
[2020-02-12] MEDS ORDERED: Morphine Sulfate 4mg/ml Inj (IV USE ONLY) ONE (18:39)
[2020-02-12 18:41] LABS: EOSINOPHILS % (AUTO) 5.2 % (0.0-3.0); HEMATOCRIT 36.9 % (42.0-52.0); HEMOGLOBIN 11.8 G/DL (14.2-18.0); LYMPHOCYTES % (AUTO) 34.6 % (20.0-45.0); MEAN CORPUSCULAR VOLUME 97 FL (80-99); MONOCYTES % (AUTO) 7.5 % (1.0-10.0); NEUTROPHILS % (AUTO) 50.7 % (45.0-75.0); PLATELET COUNT 138 K/UL (150-450); RED BLOOD COUNT 3.82 M/UL (4.70-6.10); RED CELL DISTRIBUTION WIDTH 13.7 % (11.6-14.8); WHITE BLOOD COUNT 6.1 K/UL (4.8-10.8)
[2020-02-12 18:42] LABS: APPEARANCE,URINE CLEAR; BILIRUBIN, URINE NEGATIVE (NEGATIVE); COLOR,URINE PALE YELLOW; GLUCOSE, URINE (UA) NEGATIVE (NEGATIVE); KETONES,URINE NEGATIVE (NEGATIVE); LEUKOCYTE ESTERASE ,URINE NEGATIVE (NEGATIVE); NITRITE,URINE NEGATIVE (NEGATIVE); PH,URINE 6 (4.5-8.0); PROTEIN,URINE NEGATIVE (NEGATIVE); UROBILINOGEN,URINE NORMAL MG/DL (0.0-1.0)
[2020-02-12 18:52] LABS: ANION GAP 7 mmol/L (5-15); BLOOD UREA NITROGEN 18 mg/dL (7-18); CALCIUM 8.4 MG/DL (8.5-10.1); CARBON DIOXIDE 33 MMOL/L (21-32); CHLORIDE 101 MMOL/L (98-107); CREATININE 1.6 MG/DL (0.55-1.30); POTASSIUM 3.4 MMOL/L (3.5-5.1); SODIUM 140 MMOL/L (136-145)
[2020-02-12 19:01] LABS: INR 1.1 (0.9-1.1)
[2020-02-12 19:06] LABS: ALANINE AMINOTRANSFERASE 22 U/L (12-78); ALBUMIN 3.6 G/DL (3.4-5.0); ALBUMIN/GLOBULIN RATIO 1.1 (1.0-2.7); ALKALINE PHOSPHATASE 113 U/L (46-116); ASPARTATE AMINO TRANSFERASE 29 U/L (15-37); BILIRUBIN,TOTAL 0.3 MG/DL (0.2-1.0); CREATINE KINASE 179 U/L (26-308)
--- NOTE | 2020-02-12 19:11 | Diagnostic Imaging Report ---
EXAM: XR Chest, 1 View CLINICAL HISTORY: CP TECHNIQUE: Frontal view of the chest. COMPARISON: 05/17/2019. FINDINGS: Lungs: Subsegmental atelectasis at the left lung base. No consolidative change. Pleural space: No pleural effusions. No pneumothorax. Heart: Cardiomegaly. Mediastinum: Unremarkable. Bones/joints: Osteopenia. Deformity of the proximal right humerus, partially visualized. Vasculature: Atherosclerotic disease of the aortic now. Tubes, lines and devices: Pacemaker overlies the left mid chest. IMPRESSION: Cardiomegaly. Subsegmental atelectasis at the left lung base. Findings are similar to that noted on the previous study.
[2020-02-12 20:00] VITALS: BP 154/82
[2020-02-12 20:30] VITALS: BP 147/65
[2020-02-12] MEDS ORDERED: Milk of Magnesia 30ml Ud ORAL PRN (21:30)
[2020-02-12] MEDS ORDERED: LORazepam 1mg tab ORAL PRN (21:30)
[2020-02-12] MEDS ORDERED: Mylanta II UD 30ml ORAL PRN (21:30)
[2020-02-12] MEDS ORDERED: Nitroglycerin Subl 0.4mg tab SL PRN (21:30)
[2020-02-12] MEDS: Enoxaparin 60mg Inj SUBQ SCH (22:39)
[2020-02-13] VITALS: BP 139/65
[2020-02-13] MEDS: Tylenol #3 tab (300mg/30mg) ORAL PRN ×2 (00:26→06:20)
[2020-02-13 04:00] VITALS: BP 137/69
[2020-02-13 08:00] VITALS: BP 96/86
[2020-02-13 08:00] LABS: BASOPHILS % (AUTO) 2.3 % (0.0-2.0); EOSINOPHILS % (AUTO) 5.8 % (0.0-3.0); HEMATOCRIT 34.2 % (42.0-52.0); HEMOGLOBIN 11.5 G/DL (14.2-18.0); LYMPHOCYTES % (AUTO) 37.6 % (20.0-45.0); MEAN CORPUSCULAR VOLUME 94 FL (80-99); MONOCYTES % (AUTO) 12.3 % (1.0-10.0); NEUTROPHILS % (AUTO) 41.9 % (45.0-75.0); PLATELET COUNT 175 K/UL (150-450); RED BLOOD COUNT 3.65 M/UL (4.70-6.10); WHITE BLOOD COUNT 4.7 K/UL (4.8-10.8)
[2020-02-13 08:44] LABS: ALANINE AMINOTRANSFERASE 6 U/L (12-78); ALBUMIN 3.2 G/DL (3.4-5.0); ALBUMIN/GLOBULIN RATIO 1.3 (1.0-2.7); ALKALINE PHOSPHATASE 103 U/L (46-116); ANION GAP 5 mmol/L (5-15); ASPARTATE AMINO TRANSFERASE 16 U/L (15-37); BILIRUBIN,TOTAL 0.3 MG/DL (0.2-1.0); BLOOD UREA NITROGEN 17 mg/dL (7-18); CALCIUM 8.4 MG/DL (8.5-10.1); CARBON DIOXIDE 34 MMOL/L (21-32); CHLORIDE 108 MMOL/L (98-107); CHOLESTEROL 196 MG/DL (< 200); CREATINE KINASE 97 U/L (26-308); CREATININE 1.3 MG/DL (0.55-1.30); HDL CHOLESTEROL 44 MG/DL (40-60); POTASSIUM 3.9 MMOL/L (3.5-5.1); SODIUM 147 MMOL/L (136-145); TRIGLYCERIDES 63 MG/DL (30-150)
[2020-02-13] MEDS ORDERED: Aspirin Baby 81mg ORAL SCH (09:00)
[2020-02-13] MEDS ORDERED: Montelukast 10mg tablet ORAL SCH (09:00)
[2020-02-13] MEDS ORDERED: LORazepam 1mg tab ORAL SCH ×2 (09:00→09:30)
[2020-02-13] MEDS ORDERED: Bisacodyl EC 5mg tab ORAL PRN (09:00)
[2020-02-13] MEDS ORDERED: Imdur 30mg tab ORAL SCH (09:00)
[2020-02-13] MEDS ORDERED: Docusate 100mg cap ORAL SCH (09:00)
[2020-02-13 09:14] VITALS: BP 96/86
[2020-02-13] MEDS: Enoxaparin 60mg Inj SUBQ SCH (09:15)
--- NOTE | 2020-02-13 14:00 | History and Physical Report ---
DATE OF ADMISSION: 02/12/2020 CHIEF COMPLAINT AND REASON FOR HOSPITALIZATION: The patient admitted for evaluation of chest pain. HISTORY OF PRESENT ILLNESS: The patient is an 84-year-old man with a history of apparently chronic narcotic dependent pain, prostate cancer, hypertension, permanent pacemaker, COPD. He apparently went to his methadone clinic where he gets 65 mg daily and subsequently developed some chest pain in the precordial area possibly radiating to the left shoulder. The pain abated quickly. He came to the emergency room. Initial troponin is negative, but he thought to be needed to observe for possible acute coronary syndrome. The patient is not complaining of shortness of breath, palpitations, dizziness, or recurrent chest pain. He does state that he had a coronary angiogram and stenting several years ago at [facility], details are not available. ALLERGIES: To intravenous iodine contrast. HABITS: He was a heavy smoker. States he quit 40 years ago. Also a moderate alcohol drinker, quit 40 years ago. 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 MEDICATIONS: List on transfer, which is not confirmed yet, but is listed as following: Tylenol p.r.n., amlodipine, atenolol, bisacodyl, DSS, famotidine, ferrous sulfate, furosemide, isosorbide, lorazepam, montelukast, omeprazole, Protonix, Crestor, tamsulosin. PAST SURGICAL HISTORY: Permanent pacemaker, coronary artery stenting, prostate biopsy. SYSTEM REVIEW: HEAD, EYES, EARS, NOSE, AND THROAT: Vision and hearing is good. ENDOCRINE: No diabetes. No thyroid disease. PULMONARY: He is a prior heavy smoker. He has a history of COPD. Currently not short of breath. CARDIAC: See history of present illness. GASTROINTESTINAL: No GI bleeding, ulcers, or abdominal pain, but he is on medicines for gastritis. GENITOURINARY: There is a mild slow stream urine. No dysuria or hematuria. NEUROLOGIC: No CVA or syncope. MUSCULOSKELETAL: History of some chronic back pain. PHYSICAL EXAMINATION: GENERAL: The patient is alert man, lying in bed, in no acute distress. VITAL SIGNS: Temperature 98.1 degrees, pulse 59, respirations 20, and blood pressure . HEAD, EYES, EARS, NOSE, AND THROAT: Sclerae are nonicteric. Ocular motions intact in all directions. Oral mucosa moist. NECK: No adenopathy or thyroid enlargement. LUNGS: Clear. HEART: Regular rhythm. I hear no murmur. ABDOMEN: Soft without organomegaly or masses. EXTREMITIES: No edema, cyanosis, or clubbing. NEUROLOGIC: He is alert and oriented. Cranial nerves are intact. PERTINENT LABORATORY DATA: Show white count of 6.1, hemoglobin of 11.8. Troponin 0. Sodium 140, potassium 3.4, creatinine 1.6. IMPRESSION: 1. Chest pain, possible acute coronary, possible musculoskeletal, possible gastroesophageal reflux. 2. History of methadone maintenance. 3. History of COPD. 4. History of coronary artery stenting and pacemaker. PLAN: We will get the serial troponins. Observe his symptoms. Continue anti-ischemic therapy. Orders have been given in detail. Sergio Barnett M.D. DR: ANTHONY JOB#: [id number] CC:
[2020-02-13] MEDS ORDERED: Tamsulosin 0.4mg cap ORAL SCH (21:00)
--- NOTE | 2020-02-13 22:15 | Discharge Summary ---
DATE OF ADMISSION: 02/12/2020 DATE OF DISCHARGE: 02/13/2020 PERTINENT HISTORY: The patient presents for evaluation of chest pain in the substernal area going towards the left shoulder. PERTINENT PHYSICAL FINDINGS: See the dictated History and Physical, no changes. COURSE IN THE HOSPITAL: The patient had 2 troponins both 0. BNP 812. Potassium 3.4, repeat 3.9. Creatinine 1.6, repeat 1.3. He had no further chest pain. Condition was discussed with the patient and it is felt that he may have had noncardiac chest pain atypical, but that he could return to his assisted living facility and follow up in the office of Dr. Ansari, his regular doctor. FINAL DIAGNOSES: 1. Chest pain, possible acute coronary syndrome with normal troponins. 2. History of coronary artery stenting. 3. History of chronic opiate dependent, pain management. 4. History of prostate cancer. 5. History of pacemaker. 6. History of COPD. 7. History of hypertension. DISCHARGE DISPOSITION: Back to his assisted living with his usual medications. FOLLOWUP: Follow up in the office of Dr. Ansari. Sergio Barnett M.D. DR: MELLY JOB#: [id number] CC:
== END 2020-02-13 12:50 | disposition home or self-care (01) ==
LOC: EDBD 18:06 → EMR 19:15 → 2E 19:16 → EDBEDREQ 21:14
DX: R07.9 Chest pain, unspecified (principal); Z95.5 Presence of coronary angioplasty implant and graft; Z85.46 Personal history of malignant neoplasm of prostate; J44.9 Chronic obstructive pulmonary disease, unspecified; I10 Essential (primary) hypertension; Z87.891 Personal history of nicotine dependence; Z79.899 Other long term (current) drug therapy; Z95.0 Presence of cardiac pacemaker; Z91.041 Radiographic dye allergy status; M51.36 Other intervertebral disc degeneration, lumbar region
CPT/HCPCS: 36415 ×2; 71045; 80053 ×2; 80061; 81003; 82550 ×2; 83690; 83880; 84443; 84484 ×2; 85025 ×2; 85610; 85730; 86140; 93005 ×2; 96374; 96375; 99285; J1650 ×2; J2270; J2405

== ENCOUNTER 2020-04-06 16:20 | Inpatient (IN) | payer MEDICARE, BC ==
[~2020-04-06] VITALS: Ht 170.2 cm; Wt 63.5 kg
[2020-04-06 16:20] VITALS: BP 119/64
[~2020-04-06 16:20] MED LIST changes: +OMEPRAZOLE40 M1 ORAL
--- NOTE | 2020-04-06 16:20 | NUR ---
ED Nurse Note: Patient Lydia MALDONADO from [facility] c/o left side chest pain x2 hrs ago. Per pt, pain worsened with inspiration. Pt has pacemaker on left upper chest. Reports mild SOB. No acute distress. Afebrile. Pt placed on child monitor. ERMD at bedside.
--- NOTE | 2020-04-06 16:25 | NUR ---
ED Nurse Note: IV line established. Blood specimen collected and sent to lab.
[2020-04-06] MEDS ORDERED: Nitroglycerin 2% oint pkt TOPIC ONE ×2 (16:30→16:33)
--- NOTE | 2020-04-06 16:39 | Emergency Room Report ---
History of Present Illness General Chief Complaint: Chest Pain Source: Patient, Medical Record Present Illness HPI 84-year-old male history of hypertension history of pacemaker placement presents with left-sided chest pain sharp in nature started at 2 PM no aggravating relieving factors severity is moderate, constant patient states it happened at rest and no dyspnea on exertion he does endorse some shortness of breath no diaphoresis, patient presents for evaluation via EMS Allergies: Coded Allergies: IODINE (Verified Allergy, Unknown, 05/29/09) Uncoded Allergies: IV dye (Allergy, Unknown, 01/08/15) COVID-19 Screening Contact w/high risk pt: No Recent Travel to affected area: No Experienced COVID-19 symptoms?: No Patient History Past Medical History: see triage record Reviewed Nursing Documentation: PMH: Agreed; PSxH: Agreed Nursing Documentation-PMH Past Medical History: No History, Except For Hx Cardiac Problems: Yes Hx Hypertension: Yes Hx Pacemaker: No Hx Asthma: No Hx COPD: No Hx Diabetes: No Hx Cancer: Yes Hx Gastrointestinal Problems: No History Of Psychiatric Problem: Yes - bipolar Hx Neurological Problems: No Hx Cerebrovascular Accident: No Hx Seizures: No Review of Systems All Other Systems: negative except mentioned in HPI Physical Exam Vital Signs Date Time Temp Pulse Resp B/P (MAP) Pulse Ox O2 Delivery O2 Flow Rate FiO2 04/06/20 16:10 97.9 66 18 119/64 (82) 99 Room Air Sp02 EP Interpretation: reviewed, normal General Appearance: well appearing, no apparent distress, alert Head: normocephalic, atraumatic Eyes: bilateral eye PERRL, bilateral eye EOMI ENT: uvula midline, moist mucus membranes Neck: supple, thyroid normal, supple/symm/no masses Respiratory: lungs clear, no respiratory distress, no retraction, no accessory muscle use Cardiovascular #1: normal peripheral pulses, regular rate, rhythm, no edema, no gallop, no murmur Gastrointestinal: non tender, soft, no guarding, no rebound Musculoskeletal: normal inspection Neurologic: alert, oriented x3 Psychiatric: mood/affect normal Skin: no rash, warm/dry Medical Decision Making Diagnostic Impression: Primary Impression: Chest pain Qualified Codes: R07.9 - Chest pain, unspecified ER Course 84-year-old male presents with chest pain concerning for possible ACS versus pneumonia versus pneumothorax Patient will be admitted for ACS rule out, for troponin negative, patient given aspirin, nitroglycerin Patient will be admitted to Dr. Bhat Laboratory Tests Test 04/06/20 16:38 White Blood Count 5.5 K/UL (4.8-10.8) Red Blood Count 3.85 M/UL (4.70-6.10) L Hemoglobin 11.8 G/DL (14.2-18.0) L Hematocrit 37.5 % (42.0-52.0) L Mean Corpuscular Volume 97 FL (80-99) Mean Corpuscular Hemoglobin 30.6 PG (27.0-31.0) Mean Corpuscular Hemoglobin Concent 31.4 G/DL (32.0-36.0) L Red Cell Distribution Width 12.3 % (11.6-14.8) Platelet Count 171 K/UL (150-450) Mean Platelet Volume 9.6 FL (6.5-10.1) Neutrophils (%) (Auto) 58.0 % (45.0-75.0) Lymphocytes (%) (Auto) 25.9 % (20.0-45.0) Monocytes (%) (Auto) 10.4 % (1.0-10.0) H Eosinophils (%) (Auto) 4.0 % (0.0-3.0) H Basophils (%) (Auto) 1.7 % (0.0-2.0) Prothrombin Time 11.0 SEC (9.30-11.50) Prothrombin Time INR 1.0 (0.9-1.1) Activated Partial Thromboplast Time 28 SEC (23-33) Sodium Level 138 MMOL/L (136-145) Potassium Level 3.7 MMOL/L (3.5-5.1) Chloride Level 103 MMOL/L (98-107) Carbon Dioxide Level 26 MMOL/L (21-32) Anion Gap 9 mmol/L (5-15) Blood Urea Nitrogen 15 mg/dL (7-18) Creatinine 1.5 MG/DL (0.55-1.30) H Estimated Glomerular Filtration Rate 44.7 mL/min (>60) Glucose Level 109 MG/DL (74-106) H Calcium Level 8.7 MG/DL (8.5-10.1) Total Bilirubin 0.4 MG/DL (0.2-1.0) Aspartate Amino Transferase (AST) 16 U/L (15-37) Alanine Aminotransferase (ALT) 16 U/L (12-78) Alkaline Phosphatase 90 U/L (46-116) Troponin I 0.001 ng/mL (0.000-0.056) Pro-B-Type Natriuretic Peptide 432 pg/mL (0-125) H Total Protein 6.5 G/DL (6.4-8.2) Albumin 3.4 G/DL (3.4-5.0) Globulin 3.1 g/dL Albumin/Globulin Ratio 1.1 (1.0-2.7) Lipase 132 U/L (73-393) EKG Diagnostic Results EKG Time: 16:23 EP Interpretation: NSR, rate 62, QTc 436, normal axis, no acute ST elevations Rhythm Strip Diag. Results Rhythm Strip Time: 16:44 EP Interpretation: yes Rate: 60 Rhythm: NSR, no PVC's, no ectopy Chest X-Ray Diagnostic Results Chest X-Ray Diagnostic Results : Chest X-Ray Ordered: Yes # of Views/Limited/Complete: 1 View Indication: Chest Pain EP Interpretation: Yes Interpretation: no consolidation, no effusion, no pneumothorax, no acute cardiopulmonary disease Impression: No acute disease Electronically Signed by: Landon Be MD Last Vital Signs Date Time Temp Pulse Resp B/P (MAP) Pulse Ox O2 Delivery O2 Flow Rate FiO2 04/06/20 16:36 119/64 04/06/20 16:10 97.9 66 18 99 Room Air Disposition: ADMITTED INPATIENT Condition: Stable Landon Be MD April 06, 2020 16:39
--- NOTE | 2020-04-06 16:47 | NUR ---
ED Nurse Note: Xray at bedside.
--- NOTE | 2020-04-06 17:17 | Diagnostic Imaging Report ---
Indication: Chest pain Technique: One view of the chest Comparison: 02/12/2020 Findings: The heart is borderline enlarged. Left chest pacemaker again demonstrated. The aorta is tortuous and ectatic. The lungs and pleural spaces are clear. Previously demonstrated basilar atelectatic changes are not evident currently. Impression: Borderline cardiomegaly No acute process
[2020-04-06 17:21] LABS: BASOPHILS % (AUTO) 1.7 % (0.0-2.0); HEMATOCRIT 37.5 % (42.0-52.0); HEMOGLOBIN 11.8 G/DL (14.2-18.0); LYMPHOCYTES % (AUTO) 25.9 % (20.0-45.0); MEAN CORPUSCULAR VOLUME 97 FL (80-99); MONOCYTES % (AUTO) 10.4 % (1.0-10.0); PLATELET COUNT 171 K/UL (150-450); RED BLOOD COUNT 3.85 M/UL (4.70-6.10); RED CELL DISTRIBUTION WIDTH 12.3 % (11.6-14.8); WHITE BLOOD COUNT 5.5 K/UL (4.8-10.8)
[2020-04-06 17:42] LABS: ANION GAP 9 mmol/L (5-15); BLOOD UREA NITROGEN 15 mg/dL (7-18); CALCIUM 8.7 MG/DL (8.5-10.1); CARBON DIOXIDE 26 MMOL/L (21-32); CHLORIDE 103 MMOL/L (98-107); CREATININE 1.5 MG/DL (0.55-1.30); POTASSIUM 3.7 MMOL/L (3.5-5.1); SODIUM 138 MMOL/L (136-145)
[2020-04-06 17:55] LABS: ALANINE AMINOTRANSFERASE 16 U/L (12-78); ALBUMIN 3.4 G/DL (3.4-5.0); ALBUMIN/GLOBULIN RATIO 1.1 (1.0-2.7); ALKALINE PHOSPHATASE 90 U/L (46-116); ASPARTATE AMINO TRANSFERASE 16 U/L (15-37); BILIRUBIN,TOTAL 0.4 MG/DL (0.2-1.0)
[2020-04-06] MEDS ORDERED: fentaNYL 100 mcg/2 mL IV ONE ×2 (18:30→21:30)
--- NOTE | 2020-04-06 19:02 | NUR ---
HAND-OFF: Report given to Pam ANGUIANO. Endorsed plan of care.
[2020-04-06 19:10] VITALS: BP 135/66
--- NOTE | 2020-04-06 19:10 | NUR ---
ED Nurse Note: received report from Lucy ANGUIANO. Will resume care of patient
--- NOTE | 2020-04-06 19:25 | NUR ---
ED Nurse Note: Called Lily Bennett. Per Janeen at the facility, patient was swabbed for covid at the facility yesterday and is still pending result. ERMD aware
--- NOTE | 2020-04-06 20:25 | NUR ---
ED Nurse Note: called tele for report, per pharmacist in charge at tele, currently occupied with rapid response and can't take report. will attempt to give report at a later time
--- NOTE | 2020-04-06 21:25 | NUR ---
ED Nurse Note: gave report to Breezy ANGUIANO.
[2020-04-06 21:30] VITALS: BP 116/74
--- NOTE | 2020-04-06 21:30 | NUR ---
ED Nurse Note: PT C/O LEFT CHEST PAIN 07/10. ERMD NOTIFIED. WILL CARRY OUT ORDER
--- NOTE | 2020-04-06 21:45 | NUR ---
TRANSFER TO FLOOR: Patient transferred to [facility] via [facility] in stable condition via transport 19 protocol as ordered, per dr. Barnett. Report given to Breezy ANGUIANO. Belongings sent with patient.
[2020-04-06 22:00] VITALS: BP 150/71
--- NOTE | 2020-04-06 22:00 | NUR ---
NURSE NOTES: Report received from Ilia ANGUIANO. Patient arrived to unit in stretcher. Patient able to ambulate from stretcher to bed with steady gate. Patient is awake and alert x 4. Patient noted to be on room air. Denies shortness of breath. Patient reports chest pain 3/10. Patient reports that has improved from the 8/10 chest pain. Nitroglycerin patch noted on left upper chest. Patient noted to have pace maker on left upper chest. Patient reports that pace maker is in place to keep his heart rate from dropping below 55 BPM. Patients vital signs are within normal limits. Blood pressure of 150/71, heart rate of 60 BPM, 98 % on room air, 98.0 degrees F oral temperature, with 20 respirations a minute. Patient has no other complaints at this time. Patient noted not have IV access at this time. Patient noted to have clean, dry, intact skin. No open skin or skin break down noted. Patient belongings list reviewed. Patient placed on copy camera operator in sinus rhythm. Oriented patient to room. Educated patient on how to use call light. Educated patient to call Breezy ANGUIANO if needs to get up. Patient verbalized understanding. Breezy ANGUIANO called Doctor Barnett and received telephone orders. Orders placed. Bed locked, alarmed, and in lowest position. Breezy ANGUIANO gave update and report to Vijaya ANGUIANO due to team nursing. Patient in stable condition at this time. Will continue to follow plan of care.
[2020-04-06] MEDS ORDERED: Nitroglycerin Subl 0.4mg tab SL PRN (22:15)
[2020-04-06] MEDS ORDERED: Zolpidem 5mg tab ORAL PRN (22:15)
[2020-04-06] MEDS ORDERED: Bisacodyl EC 5mg tab ORAL SCH (22:15)
[2020-04-07] VITALS: BP 142/68
[2020-04-07 04:00] VITALS: BP 148/69
--- NOTE | 2020-04-07 05:15 | Consultation ---
DATE OF CONSULTATION: 04/06/2020 CARDIOLOGY CONSULTATION CONSULTING PHYSICIAN: Antonio Castro MD REQUESTING PHYSICIAN: Sergio Barnett MD REASON FOR CONSULT: Chest pain. HISTORY OF PRESENT ILLNESS: This 84-year-old male with a history of hypertension and permanent pacemaker who was admitted to the hospital for evaluation of left-sided chest pain. The patient was hospitalized here approximately two months ago with a similar complaint. He was ruled out for myocardial infarction at that time. The patient notes that his pain was unprovoked, was described as severe and constant and occurred at rest. The patient had some shortness of breath associated with the symptoms but no other constitutional symptoms. PAST MEDICAL HISTORY: Prostatic hypertrophy, hyperlipidemia, hypertension, and COPD. ALLERGIES: Include iodine. MEDICATIONS: Reviewed and reconciled. FAMILY HISTORY: Noncontributory. SOCIAL HISTORY: Notable for, he quit smoking 40 years ago. He had a heavy smoking history previously. He had moderate alcohol intake in the past but also quit about 40 years ago. REVIEW OF SYSTEMS: A 10-point review of systems was performed. All systems are negative other than noted above. PHYSICAL EXAMINATION: VITAL SIGNS: Blood pressure 119/64, pulse 66, respirations 18, and afebrile. NECK: Jugular venous pressure normal. LUNGS: No wheezing or rales. CARDIAC: Regular rhythm and rate. Normal S1, S2 with a fourth heart sound. ABDOMEN: Soft. EXTREMITIES: No edema. LABORATORY AND DIAGNOSTIC DATA: White count 5.5, hemoglobin 11.8. Sodium 138, potassium 3.7, bicarb 26, BUN 15, creatinine 1.5. Natriuretic peptide 432, troponin 0.001. EKG with sinus with atrial pacing and nonspecific ST changes. Chest x-ray with no acute process. IMPRESSION: 1. Acute coronary syndrome. 2. Permanent pacemaker. 3. Hypertensive heart disease. 4. COPD. PLAN: 1. Cardiac monitoring. 2. Follow up troponin levels. 3. Continue antianginal and anti-platelet regimen. 4. In view of recurring hospitalizations for chest pain, we will pursue a myocardial perfusion scan to assess coronary flow reserve. 5. We will also obtain data regarding his pacemaker and initiate interrogation if appropriate. Antonio Castro M.D. DR: MALORIE JOB#: [id number] CC: Kellee Ansari M.D.; Fax#: [phone]
--- NOTE | 2020-04-07 07:20 | NUR ---
HAND-OFF: Report given to Valeria ANGUIANO. Endorsed that patient is to go for cardiac stress test. Endorsed that pharmacy is to call patient's methadone clinic.
--- NOTE | 2020-04-07 07:40 | NUR ---
NURSE NOTES: Received report from ANNMARIE Tijerina. Observed pt sleeping, no s/sx of acute distress. Breathing even and unlabored in RA. Pt complains of 10/10 pain in prostate area, back,and lower extremities. Pt asks for his methadone, will follow up with pharmacy regarding the correct dose. IV site patent and asymptomatic. Bed on lowest position, call light within reach. Will continue plan of care.
[2020-04-07 07:56] LABS: BASOPHILS % (AUTO) 1.6 % (0.0-2.0); EOSINOPHILS % (AUTO) 4.8 % (0.0-3.0); HEMATOCRIT 38.2 % (42.0-52.0); HEMOGLOBIN 13.3 G/DL (14.2-18.0); LYMPHOCYTES % (AUTO) 24.3 % (20.0-45.0); MEAN CORPUSCULAR VOLUME 91 FL (80-99); MONOCYTES % (AUTO) 11.1 % (1.0-10.0); NEUTROPHILS % (AUTO) 58.2 % (45.0-75.0); PLATELET COUNT 185 K/UL (150-450); RED BLOOD COUNT 4.19 M/UL (4.70-6.10); RED CELL DISTRIBUTION WIDTH 11.3 % (11.6-14.8); WHITE BLOOD COUNT 5.2 K/UL (4.8-10.8)
[2020-04-07 08:00] VITALS: BP 140/68
--- NOTE | 2020-04-07 08:42 | NUR ---
NURSE NOTES: Informed Dr Castro that pt does not want to do the stress test today, but wanted to do it on Friday instead (per Fabio from cardiology).
[2020-04-07 08:47] LABS: ALANINE AMINOTRANSFERASE 23 U/L (12-78); ALBUMIN 3.7 G/DL (3.4-5.0); ALBUMIN/GLOBULIN RATIO 1.2 (1.0-2.7); ALKALINE PHOSPHATASE 101 U/L (46-116); ANION GAP 8 mmol/L (5-15); ASPARTATE AMINO TRANSFERASE 19 U/L (15-37); BILIRUBIN,TOTAL 0.5 MG/DL (0.2-1.0); BLOOD UREA NITROGEN 13 mg/dL (7-18); CALCIUM 9.1 MG/DL (8.5-10.1); CARBON DIOXIDE 29 MMOL/L (21-32); CHLORIDE 106 MMOL/L (98-107); CHOLESTEROL 212 MG/DL (< 200); CREATININE 1.4 MG/DL (0.55-1.30); HDL CHOLESTEROL 55 MG/DL (40-60); POTASSIUM 3.8 MMOL/L (3.5-5.1); SODIUM 143 MMOL/L (136-145); TRIGLYCERIDES 71 MG/DL (30-150)
--- NOTE | 2020-04-07 08:57 | NUR ---
CARDIOLOGY Pt claimed he had coffee earlier. So Lexiscan can not be done today. When I get consult with Dr. Echols who is on the Cardiology panel today, Dobutamine is not a good choice either since pt has permanent pacemaker. Dr. Echols also said PUI has potential Covid exposure to many staffs and facility involved in the test.
[2020-04-07] MEDS ORDERED: Atenolol 25mg tab ORAL SCH (09:00)
[2020-04-07] MEDS ORDERED: Enoxaparin 40mg Inj SUBQ SCH (09:00)
[2020-04-07] MEDS ORDERED: Lexiscan 0.4mg/5ml syringe IV PRN (10:00)
--- NOTE | 2020-04-07 10:55 | NUR ---
CASE MANAGEMENT:REVIEW 84 YR OLD MALE BIBA FROM [facility] CC: CHEST PAIN PMH: HAS PACEMAKER SI: ACS. COPD 97.8 66 18 119/64 99% ON RA H/H-13.3/38.2 CR+1.4 IS: ASA PO NITRO 1" TO CW CHEST XRAY COVID 19 SWAB : TO TELEMETRY PLAN: MYOCARDIAL PERFUSION SCAN
[2020-04-07 12:00] VITALS: BP 145/75
--- NOTE | 2020-04-07 12:39 | NUR ---
NURSE NOTES: Md Barnett aware of pending CV-19 test, stated the pt has no symptoms and is not sick.. will continue with DC
--- NOTE | 2020-04-07 13:30 | NUR ---
NURSE NOTES: Pt left the unit in stable condition, ambulatory, and picked up by taxi. Belongings and DC papers handed to pt. Tele monitor removed, IV removed, no bleeding noted. Provided pt with surgical mask.
--- NOTE | 2020-04-07 16:14 | History and Physical Report ---
DATE OF ADMISSION: 04/06/2020 CHIEF COMPLAINT AND REASON FOR HOSPITALIZATION: The patient is an 84-year-old man admitted for chest pain. HISTORY OF PRESENT ILLNESS: The patient has a history of permanent pacemaker, prior coronary artery stenting years ago at [facility], COPD, prostate cancer, chronic pain syndrome on methadone 70 mg daily. He apparently missed his dose of methadone on the morning of 04/06/2020. He presents with chest pain, lasting three or more hours with radiation to the left arm. No shortness of breath. No palpitation. Initial troponin is negative. HABITS: He is a former cigarette smoker. Moderate alcohol use and quit many years ago. Former use of drugs. HOME MEDICATIONS: Include Tylenol, amlodipine, atenolol, DSS, famotidine, ferrous sulfate, Lasix, isosorbide, lorazepam, montelukast, omeprazole, Protonix, Crestor, Flomax. I am not sure this is a true list, also methadone 70 mg daily. PAST SURGICAL HISTORY: Prostatectomy, permanent pacemaker, coronary artery stenting. SYSTEM REVIEW: HEAD, EYES, EARS, NOSE, AND THROAT: Vision and hearing is good. ENDOCRINE: No diabetes or thyroid disease. PULMONARY: History of prior smoking. There is no shortness of breath at this time. CARDIAC: See history of present illness. He was hospitalized at [facility] about a month ago for similar chest pain with normal troponins. GASTROINTESTINAL: Intermittent heartburn. No hematochezia, melena or GI bleeding. GENITOURINARY: No dysuria or hematuria. Stream of urine was good now. NEUROLOGIC: No CVA or seizures. PHYSICAL EXAMINATION: GENERAL: The patient is alert, well-developed man, in no acute distress. VITAL SIGNS: Temperature 97.8, pulse 64, respirations 20, blood pressure 140/68. HEAD, EYES, EARS, NOSE, AND THROAT: Sclerae are nonicteric. Ocular motions are intact in all directions. Oral mucosa is moist. NECK: No adenopathy or thyroid enlargement. LUNGS: Clear. HEART: Regular rhythm. No murmur. ABDOMEN: Soft without organomegaly or masses. EXTREMITIES: No edema, cyanosis, or clubbing. NEUROLOGIC: He is alert and oriented. Cranial nerves are intact. No focal deficit. LABORATORY DATA: Labs are reviewed including troponins normal x2. EKG nonspecific ST-T wave abnormalities. IMPRESSION: 1. Chest pain. It is not clear, this is angina or not. He has refused a stress test today. He has had normal troponins on this admission and the prior admission, very likely this is noncardiac pain. 2. Anxiety. 3. Methadone maintenance. 4. COPD. 5. Hypertension. 6. History of pacemaker. PLAN: Since he refused the stress test, I will discharge him with nitroglycerin p.r.n. and follow up in the office of Dr. Ansari. Sergio Barnett M.D. DR: ANTHONY JOB#: [id number] CC:
[2020-04-07] MEDS ORDERED: Tamsulosin 0.4mg cap ORAL SCH (21:00)
--- NOTE | 2020-04-08 00:15 | Progress Note ---
DATE: 04/07/2020 CARDIOLOGY PROGRESS NOTE SUBJECTIVE: The patient without new complaints. No chest pain. No shortness of breath. Troponin x2 remained negative. PHYSICAL EXAMINATION: VITAL SIGNS: Blood pressure 148/69, heart rate 64, respiratory rate 19. Monitored rhythm sinus. LUNGS: Clear. CARDIAC: Regular. Normal S1, S2 with a fourth heart sound. ABDOMEN: Soft. EXTREMITIES: No edema. LABORATORY DATA: White count 5.2, hemoglobin 13. Potassium 3.8, BUN and creatinine 13/1.4. LDL cholesterol is 131 with HDL 55. IMPRESSION: 1. Chest pain episode, possibly anginal. 2. Hypertensive heart disease with slight elevation of blood pressure range. 3. Chronic diastolic congestive heart failure due to hypertensive heart disease. 4. Dyslipidemia. 5. Chronic kidney disease. 6. Permanent pacemaker. PLAN: The patient refused a stress test today to assess coronary flow reserve. He prefers to do it as another day as an outpatient. The patient's pacemaker will be interrogated as well as an outpatient. The patient can be discharged safely on his current medication regimen with the addition of an angiotensin-converting enzyme inhibitor to optimize blood pressure control further. He should remain on anti-platelet therapy and a statin drug to optimize LDL and HDL ratio. Outpatient followup will be obtained. Antonio Castro M.D. : AD JOB#: [id number] CC:
--- NOTE | 2020-04-08 03:30 | Discharge Summary ---
DATE OF ADMISSION: 04/06/2020 DATE OF DISCHARGE: 04/07/2020 PERTINENT HISTORY: Patient presents with a history of chest pain. This has abated overnight. Exam as per H and P, unremarkable. COURSE IN THE HOSPITAL: He had 2 negative troponins. Chest pain abated. He declined a stress test on 04/07/2020. This was discussed with patient and could be scheduled at a later date. Patient was discharged home in stable condition with instructions to follow up in the office of Dr. Romano. FINAL DIAGNOSES: 1. Chest pain, possible angina, possible noncardiac pain. 2. History of pacemaker. 3. History of prior coronary artery stenting. 4. History of prostate cancer. 5. History of methadone maintenance. 6. COPD. 7. History of several hospitalizations for chest pain with no myocardial infarction. DISCHARGE MEDICATIONS: Discharged on his usual medications and nitroglycerin p.r.n. FOLLOWUP: Follow up by Dr. Romano. Sergio Barnett M.D. DR: FOUZIA JOB#: [id number] CC:
[2020-04-08] MEDS ORDERED: Atenolol 25mg tab ORAL SCH (09:00)
== END 2020-04-07 13:33 | disposition home or self-care (01) | DRG 311 ==
LOC: EDBD 16:20 → EMR 16:30 → 2E 17:17 → EDBEDREQ 19:22
DX: I24.9 Acute ischemic heart disease, unspecified (principal); I50.32 Chronic diastolic (congestive) heart failure; I13.0 Hypertensive heart and chronic kidney disease with heart failure and stage 1 through stage 4 chronic kidney disease, or unspecified chronic kidney disease; I25.119 Atherosclerotic heart disease of native coronary artery with unspecified angina pectoris; Z95.0 Presence of cardiac pacemaker; Z91.041 Radiographic dye allergy status; Z95.5 Presence of coronary angioplasty implant and graft; F17.200 Nicotine dependence, unspecified, uncomplicated; F41.9 Anxiety disorder, unspecified; F11.90 Opioid use, unspecified, uncomplicated; J44.9 Chronic obstructive pulmonary disease, unspecified; Z85.46 Personal history of malignant neoplasm of prostate; E78.5 Hyperlipidemia, unspecified; N18.9 Chronic kidney disease, unspecified
CPT/HCPCS: 36415; 71045; 80053; 80061; 83690; 83880; 84484; 85025; 85610; 85730; 87081; 93005; 93306; 96374; 96375; 96376; 99285; J2405